=== PATIENT | male | born 1940 | race Caucasian/White ===

== ENCOUNTER → 2018-07-22 10:37 | Outpatient (CLI) | payer MEDICARE, BC, SELFPAY ==
[2018-07-24 14:35] LABS: Parathyroid Hormone Int 117 pg/mL (14-64)
== END ==
PROVIDERS: PCP Internal Medicine; Visit Provider Internal Medicine
DX: E21.2 Other hyperparathyroidism (principal)
CPT/HCPCS: 36415; 83970

== ENCOUNTER → 2018-11-25 13:59 | Outpatient (CLI) | payer MEDICARE, BC, SELFPAY | PROVIDERS: PCP Internal Medicine; Visit Provider Internal Medicine | DX: E21.3 Hyperparathyroidism, unspecified (principal) | CPT/HCPCS: 77080 ==

== ENCOUNTER → 2019-07-20 16:02 | Outpatient (ROUT) | payer MEDICARE, BC, SELFPAY ==
[2019-07-20 16:24] LABS: Aspartate Aminotransferase 39 IU/L (17-59); BUN Creatinine Ratio 24.4 (6-22); Blood Urea Nitrogen 22 mg/dL (9-20); Calcium 10.4 mg/dL (8.4-10.2); Carbon Dioxide 27 mmol/L (22-32); Chloride 104 mmol/L (98-107); Cholesterol 136 mg/dL (140-199); Estimated Glomerular Filt Rate > 60.0 mL/min (>60); Glucose 89 mg/dL (80-110); HDL Cholesterol 26 mg/dL (40-60); HEMOLYSIS < 15 (0-50); LDL Cholesterol Calculated 59 mg/dL (<100); Sodium 139 mmol/L (137-145); Triglycerides 257 mg/dL (35-150)
[2019-07-20 16:57] LABS: Prostate Specific Antigen 1.32 ng/mL (0.10-4.00)
== END ==
PROVIDERS: PCP Internal Medicine; Visit Provider Internal Medicine
DX: N40.0 Benign prostatic hyperplasia without lower urinary tract symptoms (principal); E21.3 Hyperparathyroidism, unspecified; I10 Essential (primary) hypertension; E78.2 Mixed hyperlipidemia
CPT/HCPCS: 80048; 80061; 84153; 84450

== ENCOUNTER 2020-01-10 13:51 | Emergency (ER) | payer MEDICARE, BC, SELFPAY ==
[2020-01-10 14:16] VITALS: BP 144/68; PULSE 86; RESP 14; TEMP 39.6; O2SAT 94
--- NOTE | 2020-01-10 14:24 | DI.RAD.S_ITS ---
PROCEDURE: XR CHEST 1V INDICATIONS: flu-like symptoms TECHNIQUE: One view of the chest was acquired. COMPARISON: [facility], , CHEST 1 VIEW, 04/23/2012, 13:33. FINDINGS: Surgical changes and devices: None. Lungs and pleura: Minimal appearance of streaky bibasilar opacities. Mediastinum: Mediastinal contours appear normal. Heart size is normal. Bones and chest wall: No suspicious bony lesions. Overlying soft tissues appear unremarkable. IMPRESSION: Minimal streaky bibasilar opacities. This could represent atelectasis. However, developing airspace disease such as pneumonia cannot be excluded. Dictated by: Luly Martinez M.D. on 01/10/2020 at 15:25 Approved by: Luly Martinez M.D. on 01/10/2020 at 15:26
--- NOTE | 2020-01-10 14:38 | ED.GENADULT ---
HPI - General Adult General Chief complaint: Upper Respiratory Symptoms Stated complaint: Respiratory issue Time Seen by Provider: 01/10/20 14:14 Source: patient and family Mode of arrival: Wheelchair History of Present Illness HPI narrative: 79-year-old gentleman with a history of hyperlipidemia, retinal artery occlusion and gout presents with 5 days of fever, scleral injection, nonproductive cough, myalgias, general malaise and weakness, mild dizziness with a feeling of being unsteady. He denies any rashes, chest pain, palpitations, abdominal pain, diarrhea, vomiting, changes to smell or taste and notes that he and his have been in strict isolation for well over a month. Reports no sore throat, adenopathy, Related Data Home Medications Medication Instructions Recorded Confirmed allopurinol 400 mg PO QDAY #0 04/23/12 01/10/20 atorvastatin [Lipitor] 20 mg PO QDAY #0 04/23/12 01/10/20 Coenzyme Q10 (#COQ(10)10) 10 mg PO #0 06/25/12 01/10/20 OMEGA-3 FATTY ACIDS (FISH OIL) 500 mg PO #0 04/27/16 01/10/20 [cranberry] #0 04/27/16 01/10/20 cholecalciferol (vitamin D3) 1 tab PO QDAY #0 tab 04/27/16 01/10/20 [Vitamin D3] aspirin 81 mg PO #0 03/09/18 01/10/20 atorvastatin 80 mg tablet 80 mg PO DAILY 03/09/18 01/10/20 Respironics Remstar CPAP #1 ea 02/16/19 01/10/20 Previous Rx's Medication Instructions Recorded azithromycin [Zithromax] 250 mg PO QDAY #6 tab 03/09/17 azithromycin See Rx Instructions .ROUTE 01/10/20 .COMPLEX #6 tab Allergies Allergy/AdvReac Type Severity Reaction Status Date / Time shrimp AdvReac Verified 01/10/20 13:29 Review of Systems Review of Systems Narrative: Pertinent positive and negative findings as per HPI Remainder of review of systems is otherwise unremarkable for CV: Chest pain, palpitations, dyspnea on exertion GI: Nausea, vomiting, diarrhea, change in bowel habits, black or bloody stools : Dysuria, hematuria, flank pain MS: joint swelling or warmth Skin: Rashes, nonhealing lesions Neuro: Syncope, tingling Psych: Depression, anxiety, suicidal ideation Endocrine: heat or cold intolerance, very dry skin Heme: Easy bruising or bleeding Allergy: Seasonal rhinorrhea, itchy eyes Patient History Medical History Gout (Acute) Hyperlipidemia (Acute) Retinal artery occlusion (Acute) Social History Smoking Status: Never smoker alcohol intake: current Smoking Status: Never smoker alcohol intake frequency: a few times a week Substance Use Type: does not use Exam Narrative Exam Narrative: General: Mildly ill-appearing but in no acute distress. Able to give a complete and coherent history. Easily speaking in full sentences, Well-nourished well-developed HEENT: Moist mucous membranes, mildly injected sclera with reactive pupils, Neck: No JVD, supple Respiratory: Lungs are clear to auscultation, no wheezing no rales no rhonchi. Full and symmetrical air movement Cardiac: Regular rate and rhythm no murmurs no bruits Abdomen: Soft nontender good bowel tones, no flank pain Skin: Warm and dry, no rashes Neurologic: Grossly neurologically intact with no obvious asymmetries or abnormalities Extremities: No trauma, well perfused, no lower extremity edema Psych: Cooperative, appropriate insight and affect Initial Vital Signs Initial Vital Signs: Vital Signs Temperature 103.3 F H 01/10/20 14:16 Pulse Rate 86 01/10/20 14:16 Respiratory Rate 14 01/10/20 14:16 Blood Pressure 144/68 H 01/10/20 14:16 Pulse Oximetry 94 01/10/20 14:16 Course Orders Ordered: ED Orders 01/10/20 14:24 XR chest 1V Stat 01/10/20 14:35 EKG-12 Lead Stat 01/10/20 14:53 Complete Blood Count AUTO DIFF Stat Comprehensive Metabolic Panel Stat Lactate (Lactic Acid) Stat Lactate Dehydrogenase Stat Troponin & CK Cardiac Panel Stat 01/10/20 15:00 Respiratory Panel (Film Array) Stat 01/10/20 15:30 Blood Culture Stat 01/10/20 15:35 Urinalysis and Microscopic Stat Discontinued Medications Acetaminophen (Tylenol) 975 mg PO NOW ONE Stop: 01/10/20 14:45 Last Admin: 01/10/20 15:01 Dose: 975 mg Documented by: KOLE Vital Signs Vital signs: Vital Signs - 8 hr 01/10/20 14:16 01/10/20 15:46 01/10/20 16:00 Temperature 103.3 F H Pulse Rate 86 76 71 Respiratory Rate 14 20 22 Blood Pressure 144/68 H Blood Pressure [Right Arm] 123/60 117/58 L Pulse Oximetry 94 93 91 Medical Decision Making Medical Records Medical records reviewed: Yes I reviewed the patient's medical records. Lab Data Lab results reviewed: Yes I reviewed the patient's lab results. Lab results narrative: Urine dip is completely unremarkable Result diagrams: 01/10/20 14:53 01/10/20 14:53 Labs: Lab Results 01/10/20 01/10/20 01/10/20 Range/Units 14:53 14:53 14:53 WBC 13.5 H (4.5-11.0) X10^3/uL RBC 4.49 L (4.5-5.9) X10^6/uL Hgb 14.0 (13.5-17.5) g/dL Hct 41.3 (41-53) % MCV 91.9 (80-100) fL MCH 31.2 (26-34) PG MCHC 33.9 (30-36) % RDW 14.5 (11.6-14.8) % Plt Count 194 (150-400) X10^3/uL Neut % (Auto) 85.7 H (50-75) % Lymph % (Auto) 4.8 L (25-40) % [place] % (Auto) 8.8 (3-14) % Eos % (Auto) 0.2 L (2-4) % Baso % (Auto) 0.5 (0-2) % Neut # (Auto) 09613 H (2276-8606) /uL Lymph # (Auto) 600 L (0856-0418) /uL [place] # (Auto) 1200 H (0-900) /uL Eos # (Auto) 0 (0-450) /uL Baso # (Auto) 100 (0-100) /uL Sodium 135 L (137-145) mmol/L Potassium 4.5 (3.4-5.1) mmol/L Chloride 99 (98-107) mmol/L Carbon Dioxide 25 (22-32) mmol/L BUN 18 (9-20) mg/dL Creatinine 0.99 (0.66-1.25) mg/dL Estimated GFR > 60.0 (>60) mL/min BUN/Creatinine Ratio 18.2 (6-22) Glucose 125 H (80-110) mg/dL Lactate (0.7-2.1) mmol/L Calcium 10.5 H (8.4-10.2) mg/dL Total Bilirubin 0.8 (0.2-1.3) mg/dL AST 35 (17-59) IU/L ALT 31 (<50) IU/L Alkaline Phosphatase 70 (38-126) U/L Lactate Dehydrogenase 277 L (313-618) U/L Total Creatine Kinase 106 (55-170) U/L CK-MB (CK-2) 0.74 (<2.37) ng/mL CK-MB (CK-2) Rel Index 0.7 L (1.5-5.0) % Troponin I < 0.012 (0.01-0.034) ng/mL Total Protein 7.8 (6.3-8.2) g/dL Albumin 4.2 (3.5-5.0) g/dL Globulin 3.6 (1.7-4.1) g/dL Albumin/Globulin Ratio 1.2 (1.0-2.8) Urine Color Urine Appearance Urine pH (4.5-8.0) Ur Specific [place] (1.000-1.035) Urine Protein (Negative) Urine Glucose (UA) (Negative) g/dL Urine Ketones (NEGATIVE) Urine Occult Blood (Negative) Urine Nitrate (Negative) Urine Bilirubin (NEGATIVE) Urine Urobilinogen (0.2) E.U./dL Ur Leukocyte Esterase (NEGATIVE) Urine RBC (0-5/HPF) Urine WBC (0-5/HPF) Ur Squamous Epith Cells (0-5/HPF) Urine Bacteria (None) Ur Culture Indicated? Chlamy pneumoniae PCR (Not Detect) Adenovirus (PCR) (Not Detect) B.parapertussis DNA PCR (Not Detect) Coronavirus OC43 (PCR) (Not Detect) Coronavirus HKU1 (PCR) (Not Detect) Coronavirus 229E (PCR) (Not Detect) Coronavirus NL63 (PCR) (Not Detect) Human Metapneumovir PCR (Not Detect) Influenza Type A (PCR) (Not Detect) Influenza Type B (PCR) (Not Detect) M. pneumoniae (PCR) (Not Detect) Parainfluenza 1 (PCR) (Not Detect) Parainfluenza 2 (PCR) (Not Detect) Parainfluenza 3 (PCR) (Not Detect) Parainfluenza 4 (PCR) (Not Detect) RSV (PCR) (Not Detect) Entero/Rhino (PCR) (Not Detect) 01/10/20 01/10/20 01/10/20 Range/Units 14:53 15:00 15:35 WBC (4.5-11.0) X10^3/uL RBC (4.5-5.9) X10^6/uL Hgb (13.5-17.5) g/dL Hct (41-53) % MCV (80-100) fL MCH (26-34) PG MCHC (30-36) % RDW (11.6-14.8) % Plt Count (150-400) X10^3/uL Neut % (Auto) (50-75) % Lymph % (Auto) (25-40) % [place] % (Auto) (3-14) % Eos % (Auto) (2-4) % Baso % (Auto) (0-2) % Neut # (Auto) (2568-8787) /uL Lymph # (Auto) (7636-5740) /uL [place] # (Auto) (0-900) /uL Eos # (Auto) (0-450) /uL Baso # (Auto) (0-100) /uL Sodium (137-145) mmol/L Potassium (3.4-5.1) mmol/L Chloride (98-107) mmol/L Carbon Dioxide (22-32) mmol/L BUN (9-20) mg/dL Creatinine (0.66-1.25) mg/dL Estimated GFR (>60) mL/min BUN/Creatinine Ratio (6-22) Glucose (80-110) mg/dL Lactate 1.2 (0.7-2.1) mmol/L Calcium (8.4-10.2) mg/dL Total Bilirubin (0.2-1.3) mg/dL AST (17-59) IU/L ALT (<50) IU/L Alkaline Phosphatase (38-126) U/L Lactate Dehydrogenase (313-618) U/L Total Creatine Kinase (55-170) U/L CK-MB (CK-2) (<2.37) ng/mL CK-MB (CK-2) Rel Index (1.5-5.0) % Troponin I (0.01-0.034) ng/mL Total Protein (6.3-8.2) g/dL Albumin (3.5-5.0) g/dL Globulin (1.7-4.1) g/dL Albumin/Globulin Ratio (1.0-2.8) Urine Color Yellow Urine Appearance Clear Urine pH 5.0 (4.5-8.0) Ur Specific [place] 1.010 (1.000-1.035) Urine Protein Trace H (Negative) Urine Glucose (UA) Negative (Negative) g/dL Urine Ketones Negative (NEGATIVE) Urine Occult Blood Trace-lysed (Negative) Urine Nitrate Negative (Negative) Urine Bilirubin Negative (NEGATIVE) Urine Urobilinogen 1.0 (0.2) E.U./dL Ur Leukocyte Esterase Negative (NEGATIVE) Urine RBC 0-1/hpf (0-5/HPF) Urine WBC 0-1/hpf (0-5/HPF) Ur Squamous Epith Cells 0-1 /hpf (0-5/HPF) Urine Bacteria None seen (None) Ur Culture Indicated? Cult not indicated Chlamy pneumoniae PCR Not detected (Not Detect) Adenovirus (PCR) Not detected (Not Detect) B.parapertussis DNA PCR Not detected (Not Detect) Coronavirus OC43 (PCR) Not detected (Not Detect) Coronavirus HKU1 (PCR) Not detected (Not Detect) Coronavirus 229E (PCR) Not detected (Not Detect) Coronavirus NL63 (PCR) Not detected (Not Detect) Human Metapneumovir PCR Not detected (Not Detect) Influenza Type A (PCR) Not detected (Not Detect) Influenza Type B (PCR) Not detected (Not Detect) M. pneumoniae (PCR) Not detected (Not Detect) Parainfluenza 1 (PCR) Not detected (Not Detect) Parainfluenza 2 (PCR) Not detected (Not Detect) Parainfluenza 3 (PCR) Not detected (Not Detect) Parainfluenza 4 (PCR) Not detected (Not Detect) RSV (PCR) Not detected (Not Detect) Entero/Rhino (PCR) Not detected (Not Detect) Imaging Data Chest x-ray: Radiologist's Impression: IMPRESSION: Minimal streaky bibasilar opacities. This could represent atelectasis. However, developing airspace disease such as pneumonia cannot be excluded. Dictated by: Luly Martinez M.D. on 01/10/2020 at 15:25 ECG Data Attestation: I personally reviewed and interpreted this ECG as follows: MDM Narrative Medical decision making narrative: No evidence of sepsis or acute coronary syndrome. Chest x-ray has streaky bibasilar opacities. There is certainly the possibility of a Covid pneumonia, however given their extended isolation and the relatively low prevalence of community transmission at this time in our community the probability of a community acquired bacterial pneumonia is more likely. Will opt to treat as an acute community-acquired bacterial pneumonia with a course of azithromycin as well as standard isolation recommendations for Covid until the test has returned. Discharge Plan Departure Patient Disposition: Home Clinical Impression: Bacterial pneumonia Discharge Date/Time: 01/10/20 16:56 Instructions: DI for Pneumonia -- Adult, DI for COVID-19 (Suspected or Confirmed ) Activity Restrictions/Additional Instructions: Thank you for coming in today I am so sorry that you are not feeling well. I am very glad that he came in I think your evaluation was very appropriate. I am finding no evidence of acute heart failure or heart attack or heart attack type syndrome. Your white blood cell count is slightly elevated suggesting, an infection consistent with your presentation in your fever. Your chest x-ray shows some streaky findings in both bases which could be a bacterial pneumonia but it also fits within the parameters of what we have been seeing with Covid pneumonia. At this time, I am going to opt to treat you with azithromycin for a bacterial pneumonia. We should have the Covid19 back by tomorrow. You will receive a phone call with the results. I have given you instructions on making sure that you are home solating on the off chance that this does turner splitter machine operator to be Covid pneumonia. If you feel that you are getting worse, having more difficulty breathing or developing new symptoms, please return to the emergency department. I hope you heal quickly. CDC Guidelines for home isolation: - Stay away from others - Limit contact with pets and animals: If you must care for a pet, wash your hands before and after interacting with them - Wear a mask if you are sick - Cover your mouth and nose with a tissue when you cough or sneeze. Dispose of tissues in a lined trash can and wash your hands immediately with soap and water for at least 20 seconds. If soap and water are not available, clean hands with alcohol-based hand wedding transportation driver that contains at least 60% alcohol. - Clean your hands often with soap and water for at least 20 seconds - Avoid touching your eyes, nose and mouth with unwashed hands - Do not share dishes, drinking glasses, cups, eating utensils, towels, or bedding with other people in your home. After using these items, wash them thoroughly with soap and water or put in the appraisal technician. - Clean high-touch surfaces in your isolation area (?sick room? and bathroom) every day; let a caregiver clean and disinfect high-touch surfaces in other areas of the home. Clean the area or item with soap and water or another detergent if it is dirty. Then, use a household disinfectant. Seek medical attention, but call first: - Seek medical care right away if your illness is worsening (for example, if you have difficulty breathing). - Call your doctor before going in: Before going to the doctor?s office or emergency room, call ahead and tell them your symptoms. They will tell you what to do. - If possible, put on a facemask before you enter the building. If you can?t put on a facemask, try to keep a safe distance from other people (at least 6 feet away). This will help protect the people in the office or waiting room. - Follow care instructions from your healthcare provider and local health department: Your local health authorities will give instructions on checking your symptoms and reporting information. Emergency warning signs for COVID-19: - Difficulty breathing or shortness of breath - Persistent pain or pressure in the chest - New confusion or inability to arouse - Bluish lips or face Prescriptions: New azithromycin 250 mg tablet See Rx Instructions .ROUTE .COMPLEX Qty: 6 RF: 0 No Action atorvastatin [Lipitor] 20 MG tablet 20 mg PO QDAY Qty: 0 RF: 0 allopurinol 300 MG tablet 400 mg PO QDAY Qty: 0 RF: 0 Coenzyme Q10 (#COQ(10)10) 10 mg PO Qty: 0 RF: 0 cholecalciferol (vitamin D3) [Vitamin D3] 2,000 UNIT tablet 1 tab PO QDAY Qty: 0 RF: 0 OMEGA-3 FATTY ACIDS (FISH OIL) 500 mg PO Qty: 0 RF: 0 [cranberry] Qty: 0 RF: 0 azithromycin [Zithromax] 250 MG tablet 250 mg PO QDAY Qty: 6 RF: 0 aspirin 81 mg PO Qty: 0 RF: 0 atorvastatin [Lipitor] 80 mg tablet 80 mg PO DAILY RF: 0 (DME) Respironics Remstar CPAP Qty: 1 RF: 0 Referrals: Ryder Aguilar MD [Primary Care Provider] -
[2020-01-10] MEDS: ACETAMINOPHEN 325 MG TABLET 975 MG PO (15:01)
[2020-01-10 15:03] LABS: Add Manual Diff / Slide Review NO; Basophils Absolute Auto 100 /uL (0-100); Basophils Percent Auto 0.5 % (0-2); Eosinophils Absolute Auto 0 /uL (0-450); Eosinophils Percent Auto 0.2 % (2-4); Hematocrit 41.3 % (41-53); Lymphocytes Absolute Auto 600 /uL (1100-4500); Lymphocytes Percent Auto 4.8 % (25-40); Mean Corpuscular HGB Conc 33.9 % (30-36); Mean Corpuscular Hemoglobin 31.2 PG (26-34); Mean Corpuscular Volume 91.9 fL (80-100); Monocytes Absolute Auto 1200 /uL (0-900); Monocytes Percent Auto 8.8 % (3-14); Neutrophils Absolute Auto 11500 /uL (1500-7000); Neutrophils Percent Auto 85.7 % (50-75); Platelet Count 194 X10^3/uL (150-400); Red Blood Cell Count 4.49 X10^6/uL (4.5-5.9); Red Cell Distribution Width 14.5 % (11.6-14.8); White Blood Cell Count 13.5 X10^3/uL (4.5-11.0)
[2020-01-10 15:10] LABS: Creatine Kinase 106 U/L (55-170); Lactate Dehydrogenase 277 U/L (313-618)
[2020-01-10 15:12] LABS: Alanine Aminotransferase 31 IU/L (<50); Albumin 4.2 g/dL (3.5-5.0); Albumin Globulin Ratio 1.2 (1.0-2.8); Alkaline Phosphatase 70 U/L (38-126); Aspartate Aminotransferase 35 IU/L (17-59); BUN Creatinine Ratio 18.2 (6-22); Bilirubin Total 0.8 mg/dL (0.2-1.3); Blood Urea Nitrogen 18 mg/dL (9-20); Calcium 10.5 mg/dL (8.4-10.2); Carbon Dioxide 25 mmol/L (22-32); Chloride 99 mmol/L (98-107); Estimated Glomerular Filt Rate > 60.0 mL/min (>60); Globulin 3.6 g/dL (1.7-4.1); Glucose 125 mg/dL (80-110); HEMOLYSIS < 15 (0-50); Lactate (Lactic Acid) 1.2 mmol/L (0.7-2.1); Potassium 4.5 mmol/L (3.4-5.1); Sodium 135 mmol/L (137-145); Total Protein 7.8 g/dL (6.3-8.2)
[2020-01-10 15:23] LABS: Troponin I < 0.012 ng/mL (0.01-0.034)
[2020-01-10 15:26] LABS: CKMB % Relative Index 0.7 % (1.5-5.0); Creatine Kinase MB 0.74 ng/mL (<2.37)
[2020-01-10 15:44] LABS: Bacteria Urine None Seen
[2020-01-10 15:45] LABS: Appearance Urine UA CLEAR; Bilirubin Urine UA NEGATIVE (NEGATIVE); Color Urine UA YELLOW; Glucose Urine UA NEGATIVE (Negative); Ketones Urine UA NEGATIVE (NEGATIVE); Leukocyte Esterase Urine UA NEGATIVE (NEGATIVE); Nitrite Urine UA NEGATIVE (Negative); Occult Blood Urine UA TRACE-LYSED (Negative); Protein Urine UA TRACE (Negative)
[2020-01-10 15:46] VITALS: BP 123/60; PULSE 76; RESP 20; O2SAT 93
[2020-01-10 16:00] VITALS: BP 117/58; PULSE 71; RESP 22; O2SAT 91
[2020-01-10 16:10] LABS: Culture Indicated Urine Cult Not Indicated; RBC Urine 0-1/HPF (0-5/HPF); Squamous Epithelial Cell Urine 0-1 /HPF (0-5/HPF); WBC Urine 0-1/HPF (0-5/HPF)
[2020-01-10 17:14] LABS: Adenovirus Not Detected (Not Detect); Bordetella pertussis Not Detected (Not Detect); Chlamydophila pneumoniae Not Detected (Not Detect); Coronavirus 229E Not Detected (Not Detect); Coronavirus HKU1 Not Detected (Not Detect); Coronavirus NL 63 Not Detected (Not Detect); Coronavirus OC43 Not Detected (Not Detect); Human Metapneumovirus Not Detected (Not Detect); Human Rhinovirus/Enterovirus Not Detected (Not Detect); Influenza A Not Detected (Not Detect); Influenza B Not Detected (Not Detect); Mycoplasma pneumoniae Not Detected (Not Detect); Parainfluenza Virus 1 Not Detected (Not Detect); Parainfluenza Virus 2 Not Detected (Not Detect); Parainfluenza Virus 3 Not Detected (Not Detect); Parainfluenza Virus 4 Not Detected (Not Detect); Respiratory Syncytial Virus Not Detected (Not Detect)
[2020-01-12 05:08] LABS: COVID19 Sendout Not Detected (Not Detected)
== END 2020-01-10 16:56 | disposition home or self-care (01) ==
PROVIDERS: Emergency Provider Emergency Medicine; PCP Internal Medicine
DX: J15.9 Unspecified bacterial pneumonia (principal)
CPT/HCPCS: 36415; 71045; 80053; 81001; 82550; 82553; 83605; 83615; 84484; 85025; 87040; 87633; 87635; 93005; 99284

== ENCOUNTER → 2020-10-03 19:38 | Outpatient (ROUT) | payer MEDICARE, BC, SELFPAY ==
[2020-10-03 19:53] LABS: Add Manual Diff / Slide Review NO; Basophils Absolute Auto 0 /uL (0-100); Basophils Percent Auto 0.5 % (0-2); Eosinophils Absolute Auto 200 /uL (0-450); Eosinophils Percent Auto 1.7 % (2-4); Hematocrit 43.9 % (41-53); Hemoglobin 14.7 g/dL (13.5-17.5); Lymphocytes Absolute Auto 1900 /uL (1100-4500); Lymphocytes Percent Auto 19.8 % (25-40); Mean Corpuscular HGB Conc 33.5 % (30-36); Mean Corpuscular Hemoglobin 31.4 PG (26-34); Mean Corpuscular Volume 93.8 fL (80-100); Monocytes Absolute Auto 700 /uL (0-900); Monocytes Percent Auto 6.9 % (3-14); Neutrophils Absolute Auto 6800 /uL (1500-7000); Neutrophils Percent Auto 71.1 % (50-75); Platelet Count 207 X10^3/uL (150-400); Red Blood Cell Count 4.68 X10^6/uL (4.5-5.9); White Blood Cell Count 9.6 X10^3/uL (4.5-11.0)
[2020-10-03 20:00] LABS: Aspartate Aminotransferase 39 IU/L (17-59); BUN Creatinine Ratio 16.7 (6-22); Blood Urea Nitrogen 18 mg/dL (9-20); Calcium 10.9 mg/dL (8.4-10.2); Carbon Dioxide 26 mmol/L (22-32); Chloride 105 mmol/L (98-107); Cholesterol 126 mg/dL (140-199); Estimated Glomerular Filt Rate > 60.0 mL/min (>60); Glucose 106 mg/dL (80-110); HDL Cholesterol 32 mg/dL (40-60); HEMOLYSIS < 15 (0-50); LDL Cholesterol Calculated 66 mg/dL (<100); Potassium 4.6 mmol/L (3.4-5.1); Sodium 139 mmol/L (137-145); Triglycerides 141 mg/dL (35-150); Uric Acid 4.7 mg/dL (3.5-8.5)
[2020-10-03 20:09] LABS: Hemoglobin A1C% w Est Avg Glu 5.5 % (4.0-6.0)
[2020-10-03 20:30] LABS: Prostate Specific Antigen 1.17 ng/mL (0.10-4.00)
[2020-10-05 06:09] LABS: Parathyroid Hormone Int 75 pg/mL (15-65)
== END ==
PROVIDERS: PCP Internal Medicine; Visit Provider Internal Medicine
DX: Z00.00 Encounter for general adult medical examination without abnormal findings (principal); I10 Essential (primary) hypertension; E78.2 Mixed hyperlipidemia; R73.01 Impaired fasting glucose; N40.0 Benign prostatic hyperplasia without lower urinary tract symptoms; M10.9 Gout, unspecified
CPT/HCPCS: 80048; 80061; 83036; 83970; 84153; 84450; 84550; 85025

== ENCOUNTER → 2021-04-02 08:17 | Outpatient (CLI) | payer MEDICARE, BC, SELFPAY ==
[2021-04-02 12:28] LABS: COVID19 -Nasal RAPID Negative (Negative)
== END ==
PROVIDERS: PCP Internal Medicine; Visit Provider Specialist
DX: Z20.822 Contact with and (suspected) exposure to COVID-19 (principal)
CPT/HCPCS: 87635; C9803

== ENCOUNTER 2021-04-03 07:35 | Day surgery (SDC) | payer MEDICARE, BC, SELFPAY ==
[2021-03-28 10:52] VITALS: BMI 25.7
[2021-04-03] VITALS (8 sets, daily range): BP systolic 141–183; BP diastolic 77–93; PULSE 58–87; RESP 10–16; TEMP 36–36.6; O2SAT 93–96; BMI 25.7
--- NOTE | 2021-04-03 | PATH_ITS ---
[facility] Accession Number: [id number] . 01 Material submitted: . buttock - SEBACEOUS CYST RIGHT BUTTOCK . 01 Diagnosis: Right Buttock, Excision: Epidermal inclusion cyst, ruptured and inflamed. [facility] 04/08/2021 1712 Local . 01 Electronically signed: . Quita Khalil MD, Dermatopathologist NPI- [id number] . 01 Gross description: . The specimen is received in formalin, labeled sebaceous cyst, right buttock and consists of a 2.5 x 1.0 cm hamlin skin excised to a depth of 1.9 cm. The margin is inked blue. Cut surface shows a 0.3 x 0.3 x 0.2 cm hamlin-white cyst. Needle Board Repairer sections are submitted in cassette A1. ([id number]) /MRV 04/08/[id number] Local . 01 Pathologist provided ICD-10: L72.0 . 01 CPT . 037459 Performed at: 01 [facility] [address] [place] [address], [place], [place] [id number] MD Maynor Torrez MD Phone: [phone]
[2021-04-03] MEDS: LACTATED RINGERS 1,000 ML 42 ML IV ×2 (08:24→10:35)
--- NOTE | 2021-04-03 08:48 | PM.HP.1 ---
History of Present Illness History of Present Illness Date Patient Seen: 04/03/21 Time Patient Seen: 08:48 Chief complaint: SDC Narrative: The patient is a gentleman with a longstanding draining sinus tract to the right and above his anus. It is some distance from the anus but also not in the area usually see a pilonidal cyst. He is brought in for exam under anesthesia and treatment of whatever process is causing this problem. Patient History Medical History Carotid artery dissection Gout History of stroke HTN (hypertension) Hyperlipidemia OK (obstructive sleep apnea) Retinal artery occlusion Surgical History History of cancer surgery Hx of endarterectomy (04/2012) Family & Social History Family History Father Heart disease Jaw cancer Social History: household members spouse Tobacco & Substance use: Smoking Status Never smoker alcohol intake current alcohol intake frequency a few times a week Substance Use Type does not use Meds Home Medications and Allergies Home Medications Medication Instructions Recorded Confirmed Type allopurinol 300 mg tablet 400 mg PO QDAY #0 04/23/12 04/03/21 History [cranberry] #0 04/27/16 02/22/21 History cholecalciferol (vitamin D3) 50 1 tab PO QDAY #0 tab 04/27/16 04/03/21 History mcg (2,000 unit) tablet (Vitamin D3) atorvastatin 80 mg tablet (Lipitor) 80 mg PO DAILY 03/09/18 04/03/21 History Respironics Remstar CPAP #1 ea 02/16/19 02/22/21 History aspirin 325 mg tablet 162.5 mg PO DAILY tab 02/22/21 04/03/21 History coenzyme Q10 75 mg capsule (Ultra 75 mg PO DAILY 02/22/21 03/28/21 History CoQ10) polyethylene glycol 3350 17 17 g PO DAILY 02/22/21 04/03/21 History gram/dose oral powder (Miralax) Allergies Allergy/AdvReac Type Severity Reaction Status Date / Time shrimp AdvReac Verified 02/22/21 13:27 Review of Systems Review of Systems Narrative: No cough cold or asthma. No chest pain. No black or bloody bowel movements. Patient had been treated for hypertension but is blood pressure is normally in the 120s and because of hypotension with issues it is been stopped by his physician. He is a little concerned because his blood pressure here is elevated. Exam Vital Signs (past 8 hours): - 04/03/21 08:00 Temperature 97.8 F Pulse Rate 61 Respiratory Rate 16 Blood Pressure 183/93 H Pulse Oximetry 96 Oxygen Delivery Method Room Air Narrative Exam Narrative: Cooperative pleasant gentleman no apparent distress. Lungs are clear to auscultation no rales or rhonchi heart regular rate and rhythm without murmur gallop abdomen is mildly protuberant soft lacks Much muscle mass. No tenderness. alert and oriented. Has a visible sinus tract with mild induration around it to the right and above the anus into the right of the coccyx and slightly inferior to it. 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 I have discussed the various possibilities here in the possible treatments. He understands that I am uncertain exactly when going to have to do an its based on the intraoperative findings. He wishes to proceed.
--- NOTE | 2021-04-03 08:53 | PM.PREOP ---
Pre-operative Note COVID-19 COVID-19 status: Negative Result date/Date tested (Pos, Neg/Pending): 04/02/21 Interval Note History & Physical reviewed/Exam performed by Physician: Yes Changes to H&P: No
--- NOTE | 2021-04-03 09:16 | SUR.OPER ---
Prone on padded OR bed, head in foam head support, gel chest rolls, gel pad under knees, pillow under lower legs, toes free of pressure, arms secured on padded arm boards at <90 degrees abduction. Safety belt at thigh.
[2021-04-03] MEDS: CLINDAMYCIN 900 MG/50 ML PIGGYBACK 50 MG IV (09:45)
[2021-04-03] MEDS: CEFAZOLIN 1 GM VIAL 2 GM IV (10:06)
[2021-04-03] MEDS: BUPIVACAINE 0.5% (PF) VIAL 30 ML INJ (10:08)
[2021-04-03] MEDS: EPINEPHrine 1 MG/ML 0.15 MG INJ (10:09)
--- NOTE | 2021-04-03 10:40 | SUR.OPER ---
SEVERAL PORES ON PATIENT'S BACK EMPTIED BY DR MARCUS.. CLEANED WITH ALCOHOL AND 1 BANDAID APPLIED
--- NOTE | 2021-04-03 11:19 | PM.OP.1 ---
Operative Date/Time/Diagnoses Date of procedure: 04/03/21 Time of procedure: 11:19 Pre-op diagnosis: Abscess the buttock Post-op diagnosis: other ( sebaceous cyst of the buttock) Procedure & Clinicians Procedure: anal exam under anesthesia/ anoscopy. Excision of sebaceous cyst Same procedure as scheduled: Yes Indications: chronically be infected intermittently draining lesion that could be related to a pilonidal cyst or a fistula in ANO. Patient was brought to the operating room to figure out the nature of this lesion. Surgeon: Lorne Metz Click Yes if Unassisted: Yes Anesthesia Type: General Operative Notes Findings: sebaceous cyst Closure Type: primary Specimen(s): other ( cyst) Estimated Blood Loss (mL): 5 Blood products transfused: none Procedure in detail: patient was placed qasim-knife prone on the operating room table after undergoing general endotracheal anesthesia. He was prepped and draped in the usual fashion. Examination of this lesion fail to reveal any induration leading away from it. I probed the opening and it seemed to extend only to a small raised area adjacent to the sinus opening. The contents coming from it today appeared to be more like a sebaceous cyst material. A bivalve Anoscope was inserted aunt and a circumferential examination failed to reveal any abnormality. there was no digital abnormality in the anus either. Her gloves were removed and using sterile gloves I made an elliptical incision around this lesion. It appeared to be a classic sebaceous cyst. It did not track toward the coccyx. I excised the entire lesion. Hemostasis was achieved with cautery. The subQ was closed with 3-0 Vicryl. The skin was closed interrupted 4-0 in vertical mattress nylon sutures. Dressing was applied and the patient was returned to his stretcher extubated and taken the recovery room good condition. Excision measured 3 cm. Complications: none Post-operative Condition: stable Disposition: PACU
== END 2021-04-03 11:35 | disposition home or self-care (01) ==
PROVIDERS: PCP Internal Medicine; Referring Provider Specialist; Visit Provider Specialist
PROC: (CPT 11403; principal; 2021-04-03 08:45)
DX: L72.0 Epidermal cyst (principal); L02.31 Cutaneous abscess of buttock; G47.33 Obstructive sleep apnea (adult) (pediatric); E78.5 Hyperlipidemia, unspecified; I10 Essential (primary) hypertension; Z86.73 Personal history of transient ischemic attack (TIA), and cerebral infarction without residual deficits
CPT/HCPCS: 11403; J0171; J0330; J0690; J1100; J2405; J2704; J3010

== ENCOUNTER 2021-08-24 20:44 | Inpatient (IN) | payer MEDICARE, BC, SELFPAY ==
[2021-08-24] VITALS (10 sets, daily range): BP systolic 113–136; BP diastolic 55–60; PULSE 97–119; RESP 19–26; TEMP 37.9–39.5; O2SAT 88–100; BMI 27.8
--- NOTE | 2021-08-24 20:52 | DI.RAD.S_ITS ---
PROCEDURE: XR CHEST 1V INDICATIONS: suspected sepsis TECHNIQUE: One view of the chest was acquired. COMPARISON: [facility], CR, XR CHEST 1V, 01/10/2020, 15:07. FINDINGS: Surgical changes and devices: None. Lungs and pleura: Minimal streaky bibasilar opacities are unchanged. No focal consolidations. No pleural effusions or pneumothorax. Mediastinum: Mediastinal contours appear normal. Heart size is normal. Bones and chest wall: No suspicious bony lesions. Overlying soft tissues appear unremarkable. IMPRESSION: Minimal streaky bibasilar opacities favored to represent atelectasis; however, early developing airspace disease/pneumonia not excluded if clinically appropriate. No focal consolidations. Dictated by: Clement Kirk M.D. on 08/24/2021 at 21:25 Approved by: Clement Kirk M.D. on 08/24/2021 at 21:26
--- NOTE | 2021-08-24 20:57 | ED_ITS ---
HPI - General Adult General Chief complaint: Shortness of Breath/Dyspnea Stated complaint: UTI Time Seen by Provider: 08/24/21 20:50 Source: patient and EMS Mode of arrival: EMS History of Present Illness HPI narrative: 81-year-old gentleman with a history of hyperlipidemia, gout, prior stroke with carotid artery dissection presents after being seen this morning in the walk-in clinic diagnosed with a urinary tract infection started on cephalexin taking a single dose and noting the symptoms are dramatically worse. This morning he had been having chills and vitals were relatively benign at 9:00 a.m.. Urine was sent for culture. Over the course of the day he has had chills and rigors increasing dysuria, myalgias and general malaise. He reports no abdominal pain chest pain, palpitations, dyspnea, skin changes, lower extremity edema, headaches. On arrival in the emergency department he is not hypotensive but he is tachycardic and febrile. Sepsis order set is started and 2 g of ceftriaxone is initiated after blood cultures are drawn. Will anticipate need for admission and will complete workup to make sure no other etiology might be found to explain his fever and developing sepsis. Related Data Home Medications Medication Instructions Recorded Confirmed allopurinol 300 mg tablet 400 mg PO QDAY #0 04/23/12 08/24/21 cholecalciferol (vitamin D3) 50 1 tab PO QDAY #0 tab 04/27/16 08/24/21 mcg (2,000 unit) tablet (Vitamin D3) cranberry extract 250 mg tablet 250 mg PO DAILY #0 04/27/16 08/24/21 atorvastatin 80 mg tablet (Lipitor) 80 mg PO DAILY 03/09/18 08/24/21 Respironics Remstar CPAP #1 ea 02/16/19 08/24/21 aspirin 325 mg tablet 162.5 mg PO DAILY tab 02/22/21 08/24/21 coenzyme Q10 75 mg capsule (Ultra 75 mg PO DAILY 02/22/21 08/24/21 CoQ10) polyethylene glycol 3350 17 17 g PO DAILY 02/22/21 08/24/21 gram/dose oral powder (Miralax) vit C 250 mg-vit E 90 mg-zinc 40 1 tab PO BID 08/24/21 08/24/21 mg-copper 1 [id number] capsule (PreserVision AREDS-2) Previous Rx's Medication Instructions Recorded cephalexin 500 mg capsule 500 mg PO QID 7 Days #28 cap 08/24/21 Allergies Allergy/AdvReac Type Severity Reaction Status Date / Time shrimp AdvReac Verified 08/24/21 20:57 Review of Systems Review of Systems Narrative: Remainder of complete review of systems is otherwise unremarkable except for that included in the HPI. Patient History Medical History Carotid artery dissection Gout History of stroke HTN (hypertension) Hyperlipidemia OK (obstructive sleep apnea) Retinal artery occlusion Surgical History History of cancer surgery Hx of endarterectomy (04/2012) Family History Father Heart disease Jaw cancer Social History marital status: household members: spouse occupational status: previously employed Smoking Status: Never smoker alcohol intake: current substance use type: does not use Smoking Status: Never smoker alcohol intake frequency: a few times a week Substance Use Type: does not use Exam Narrative Exam Narrative: General: Fatigued appearing, in general appears to not feel will but no acute respiratory distress Well-nourished well-developed HEENT: Moist mucous membranes, normal sclera with reactive pupils, Neck: No JVD, supple Respiratory: Lungs are clear to auscultation, no wheezing no rales no rhonchi. Full and symmetrical air movement Cardiac: Tachycardic with regular rhythm no murmurs no bruits Abdomen: Soft, nontender, good bowel tones, no flank pain Skin: Warm to the touch, dry, no rashes Neurologic: Globally weak,with no obvious asymmetries or abnormalities, mild confusion Extremities: No trauma, well perfused, no lower extremity edema Psych: Cooperative, fluent speech, mild confusion Initial Vital Signs Initial Vital Signs: Vital Signs Temperature 103.1 F H 08/24/21 20:45 Pulse Rate 118 H 08/24/21 20:45 Respiratory Rate 26 H 08/24/21 20:45 Blood Pressure 136/60 08/24/21 20:45 Pulse Oximetry 88 L 08/24/21 20:45 Course Orders Ordered: ED Orders 08/24/21 20:45 Complete Blood Count AUTO DIFF Stat Comprehensive Metabolic Panel Stat Lipase Stat Partial Thromboplastin Time Stat Procalcitonin Stat Prothrombin Time INR Stat 08/24/21 20:48 COVID19 -Nasal swab/Pre-Proc Stat 08/24/21 20:52 XR chest 1V Stat EKG-12 Lead Stat 08/24/21 20:55 Blood Culture Stat Lactate (Lactic Acid) Stat 08/24/21 21:21 Urine Culture Stat Urine Microscopic Stat Sodium Chloride (Normal Saline 0.9%) 2,789.58 mls @ 929.86 mls/hr 30 ml/kg infuse over 3 hr (2789.58 ml) IV NOW ONE Stop: 08/25/21 00:01 Last Admin: 08/24/21 21:00 Dose: 929.86 mls/hr Documented by: LUCY Discontinued Medications Acetaminophen (Acetaminophen 325 Mg Tablet) 975 mg PO NOW ONE Stop: 08/24/21 21:21 Last Admin: 08/24/21 21:25 Dose: 975 mg Documented by: LUCY Sodium Chloride (Normal Saline 0.9%) 1,000 mls @ 1,000 mls/hr IV BOLUS ONE Stop: 08/24/21 21:51 Last Admin: 08/24/21 21:11 Dose: Not Given Documented by: KP Ceftriaxone Sodium 2,000 mg/ (Sodium Chloride) 100 mls @ 200 mls/hr IV NOW ONE Stop: 08/24/21 21:03 Last Infusion: 08/24/21 22:00 Dose: 0 mls/hr Documented by: Admin: 08/24/21 21:24 Dose: 200 mls/hr Documented by: LUCY Vital Signs Vital signs: Vital Signs - 8 hr 08/24/21 20:45 08/24/21 20:47 08/24/21 20:48 Temperature 103.1 F H Pulse Rate 118 H 119 H 119 H Respiratory Rate 26 H Blood Pressure 136/60 136/60 Pulse Oximetry 88 L 88 L 88 L 08/24/21 21:00 08/24/21 21:30 08/24/21 21:51 Temperature 102.2 F H Pulse Rate 116 H 106 H Respiratory Rate 22 19 Blood Pressure 117/59 L 113/55 L Pulse Oximetry 92 99 08/24/21 22:00 Temperature Pulse Rate 97 H Respiratory Rate 20 Blood Pressure 115/58 L Pulse Oximetry 99 Medical Decision Making Lab Data Result diagrams: 08/24/21 20:45 08/24/21 20:45 Labs: Lab Results 08/24/21 08/24/21 08/24/21 Range/Units 20:45 20:45 20:45 WBC 11.6 H (4.5-11.0) X10^3/uL RBC 4.75 (4.5-5.9) X10^6/uL Hgb 14.7 (13.5-17.5) g/dL Hct 43.6 (41-53) % MCV 91.8 (80-100) fL MCH 31.0 (26-34) PG MCHC 33.8 (30-36) % RDW 14.3 (11.6-14.8) % Plt Count 165 (150-400) X10^3/uL Neut % (Auto) 86.9 H (50-75) % Lymph % (Auto) 11.5 L (25-40) % Arthur % (Auto) 0.9 L (3-14) % Eos % (Auto) 0.2 L (2-4) % Baso % (Auto) 0.5 (0-2) % Neut # (Auto) 41847 H (8764-6021) /uL Lymph # (Auto) 1300 (6933-2796) /uL Arthur # (Auto) 100 (0-900) /uL Eos # (Auto) 0 (0-450) /uL Baso # (Auto) 100 (0-100) /uL PT 12.7 (10.1-12.7) SECONDS INR 1.1 (0.9-1.3) APTT 32 (26.4-36.2) SECONDS Sodium 136 L (137-145) mmol/L Potassium 4.5 (3.4-5.1) mmol/L Chloride 105 (98-107) mmol/L Carbon Dioxide 21 L (22-32) mmol/L BUN 17 (9-20) mg/dL Creatinine 1.07 (0.66-1.25) mg/dL Estimated GFR > 60.0 (>60) mL/min BUN/Creatinine Ratio 15.9 (6-22) Glucose 107 (80-110) mg/dL Lactate (0.7-2.1) mmol/L Calcium 9.6 (8.4-10.2) mg/dL Total Bilirubin 1.3 (0.2-1.3) mg/dL AST 31 (17-59) IU/L ALT 29 (<50) IU/L Alkaline Phosphatase 87 (38-126) U/L Total Protein 7.7 (6.3-8.2) g/dL Albumin 4.4 (3.5-5.0) g/dL Globulin 3.3 (1.7-4.1) g/dL Albumin/Globulin Ratio 1.3 (1.0-2.8) Lipase 161 (23-300) U/L Procalcitonin 0.20 (<0.5) ng/mL Urine RBC (0-5/HPF) Urine WBC (0-5/HPF) Urine Bacteria (None) Ur Culture Indicated? SARS-CoV-2 (PCR) (Negative) 08/24/21 08/24/21 08/24/21 Range/Units 20:48 20:55 21:21 WBC (4.5-11.0) X10^3/uL RBC (4.5-5.9) X10^6/uL Hgb (13.5-17.5) g/dL Hct (41-53) % MCV (80-100) fL MCH (26-34) PG MCHC (30-36) % RDW (11.6-14.8) % Plt Count (150-400) X10^3/uL Neut % (Auto) (50-75) % Lymph % (Auto) (25-40) % [place] % (Auto) (3-14) % Eos % (Auto) (2-4) % Baso % (Auto) (0-2) % Neut # (Auto) (6664-9355) /uL Lymph # (Auto) (2355-2537) /uL Arthur # (Auto) (0-900) /uL Eos # (Auto) (0-450) /uL Baso # (Auto) (0-100) /uL PT (10.1-12.7) SECONDS INR (0.9-1.3) APTT (26.4-36.2) SECONDS Sodium (137-145) mmol/L Potassium (3.4-5.1) mmol/L Chloride (98-107) mmol/L Carbon Dioxide (22-32) mmol/L BUN (9-20) mg/dL Creatinine (0.66-1.25) mg/dL Estimated GFR (>60) mL/min BUN/Creatinine Ratio (6-22) Glucose (80-110) mg/dL Lactate 2.8 H (0.7-2.1) mmol/L Calcium (8.4-10.2) mg/dL Total Bilirubin (0.2-1.3) mg/dL AST (17-59) IU/L ALT (<50) IU/L Alkaline Phosphatase (38-126) U/L Total Protein (6.3-8.2) g/dL Albumin (3.5-5.0) g/dL Globulin (1.7-4.1) g/dL Albumin/Globulin Ratio (1.0-2.8) Lipase (23-300) U/L Procalcitonin (<0.5) ng/mL Urine RBC 0-1/hpf (0-5/HPF) Urine WBC 30-100/hpf H (0-5/HPF) Urine Bacteria Few (2-10) H (None) Ur Culture Indicated? Specimen cultured SARS-CoV-2 (PCR) Negative (Negative) Urine Dip Bedside Urine Glucose Negative Bedside Urine Bilirubin - Negative Bedside Urine Ketone - Negative Urine Specific [place] 1.015 Bedside Urine Occult Blood ++ Bedside Urine pH 6.0 Bedside Urine Protein + 30 Bedside Urine Urobilinogen - Negative Bedside Urine Nitrite - Negative Bedside Urine Leukocytes + 70 Esterase Point of care testing: Urine Dip Bedside Urine Glucose Negative Bedside Urine Bilirubin - Negative Bedside Urine Ketone - Negative Urine Specific [place] 1.015 Bedside Urine Occult Blood ++ Bedside Urine pH 6.0 Bedside Urine Protein + 30 Bedside Urine Urobilinogen - Negative Bedside Urine Nitrite - Negative Bedside Urine Leukocytes + 70 Esterase ECG Data Interpretation: Sinus tachycardia at a rate of 116 Left ventricular hypertrophy, left axis deviation No acute ischemic changes MDM Narrative Medical decision making narrative: 81-year-old gentleman with UTI symptoms that started this morning consisting of chills and dysuria. He was seen in Urgent Care with a positive urinalysis was started on Keflex had 2 doses over the course of today but continued to worsen. His noted changing mental status, he was having chills and rigors and clearly worsening. They called medics for further evaluation and were brought to the emergency department. He appeared to be septic on arrival without signs of severe sepsis. He has responded nicely to initial fluid resuscitation with mental status returning to baseline, continues to have excellent peripheral per fusion. Initial lactic acid was slightly elevated and will be recheck it. He is given 2 g of ceftriaxone and will anticipate hospital admission for urinary tract infection with sepsis. He had his have questions about recurrent urinary tract infections. Apparently had a bladder infection about a year ago that resolved with antibiotics but rapidly got worse at that time as well. He does not describe dramatic BPH symptoms, states that his flow was not particularly slowed, he does not dribble he will void 2 times a night on average. Bedside ultrasound was done in the department that showed of postvoid residual of 140 cc(again this is in the setting of dehydration related to sepsis) and question of and thickened posterior bladder wall. This will need further evaluation to make sure that bladder itself is within normal limits. He does not describe episodes of hematuria, dysuria or any pain outside of what have been clearly diagnosed as urinary tract infections. Patient will be admitted to the hospitalist service Discharge Plan Departure Patient Disposition: Admitted As Inpatient Clinical Impression: Acute delirium, Abnormal ultrasound of bladder Urinary tract infection Qualifiers: Urinary tract infection type: acute cystitis Hematuria presence: with hematuria Qualified Code(s): N30.01 - Acute cystitis with hematuria Sepsis Qualifiers: Sepsis type: sepsis due to unspecified organism Sepsis acute organ dysfunction status: without acute organ dysfunction Qualified Code(s): A41.9 - Sepsis, unspecified organism
[2021-08-24] MEDS: SODIUM CHLORIDE 0.9% 2,789.58 ML 929.86 ML IV (21:00)
[2021-08-24 21:06] LABS: INR 1.1 (0.9-1.3); Prothrombin Time 12.7 SECONDS (10.1-12.7)
[2021-08-24 21:09] LABS: Add Manual Diff / Slide Review NO; Basophils Absolute Auto 100 /uL (0-100); Basophils Percent Auto 0.5 % (0-2); Eosinophils Absolute Auto 0 /uL (0-450); Eosinophils Percent Auto 0.2 % (2-4); Hematocrit 43.6 % (41-53); Hemoglobin 14.7 g/dL (13.5-17.5); Lymphocytes Absolute Auto 1300 /uL (1100-4500); Lymphocytes Percent Auto 11.5 % (25-40); Mean Corpuscular HGB Conc 33.8 % (30-36); Mean Corpuscular Volume 91.8 fL (80-100); Monocytes Absolute Auto 100 /uL (0-900); Monocytes Percent Auto 0.9 % (3-14); Neutrophils Absolute Auto 10100 /uL (1500-7000); Neutrophils Percent Auto 86.9 % (50-75); PTT Partial Thromboplastin Tim 32 SECONDS (26.4-36.2); Platelet Count 165 X10^3/uL (150-400); Red Blood Cell Count 4.75 X10^6/uL (4.5-5.9); Red Cell Distribution Width 14.3 % (11.6-14.8); White Blood Cell Count 11.6 X10^3/uL (4.5-11.0)
[2021-08-24 21:10] LABS: Alanine Aminotransferase 29 IU/L (<50); Albumin 4.4 g/dL (3.5-5.0); Albumin Globulin Ratio 1.3 (1.0-2.8); Alkaline Phosphatase 87 U/L (38-126); Aspartate Aminotransferase 31 IU/L (17-59); BUN Creatinine Ratio 15.9 (6-22); Bilirubin Total 1.3 mg/dL (0.2-1.3); Blood Urea Nitrogen 17 mg/dL (9-20); Calcium 9.6 mg/dL (8.4-10.2); Carbon Dioxide 21 mmol/L (22-32); Chloride 105 mmol/L (98-107); Estimated Glomerular Filt Rate > 60.0 mL/min (>60); Globulin 3.3 g/dL (1.7-4.1); Glucose 107 mg/dL (80-110); HEMOLYSIS 25 (0-50); Lipase 161 U/L (23-300); Potassium 4.5 mmol/L (3.4-5.1); Sodium 136 mmol/L (137-145); Total Protein 7.7 g/dL (6.3-8.2)
[2021-08-24 21:18] LABS: Lactate (Lactic Acid) 2.8 mmol/L (0.7-2.1)
[2021-08-24] MEDS: cefTRIAXone 2,000 MG in SODIUM CHLORIDE 0.9% 100 ML 200 ML IV (21:24)
[2021-08-24] MEDS: ACETAMINOPHEN 325 MG TABLET 975 MG PO (21:25)
[2021-08-24 21:33] LABS: COVID19 -Nasal RAPID Negative (Negative)
[2021-08-24 21:36] LABS: RBC Urine 0-1/HPF (0-5/HPF); WBC Urine 30-100/HPF (0-5/HPF)
[2021-08-24 21:37] LABS: Bacteria Urine Few (2-10); Culture Indicated Urine Specimen Cultured
[2021-08-24 23:10] LABS: Reflexed Lactate in 2 Hours Y
--- NOTE | 2021-08-24 23:30 | PM.HP.1 ---
History of Present Illness History of Present Illness Date Patient Seen: 08/24/21 Time Patient Seen: 23:30 Chief complaint: UTI Narrative: Conner Peña is a 81-year-old gentleman with a history of hyperlipidemia, gout, prior stroke with carotid artery dissection presents after being seen this morning in the walk-in clinic diagnosed with a urinary tract infection started on cephalexin taking a single dose and noting the symptoms are dramatically worse.? This morning he had been having chills and vitals were relatively benign at 9:00 a.m..? Urine was sent for culture.? Over the course of the day he has had chills and rigors increasing dysuria, myalgias, general malaise, and confusion.? He reports no abdominal pain chest pain, palpitations, dyspnea, skin changes, lower extremity edema, headaches.? On arrival in the emergency department he is not hypotensive but he is tachycardic and febrile.? Sepsis order set is started and 2 g of ceftriaxone is initiated after blood cultures are drawn.? Patient's vitals upon admit is febrile at 1:02 a.m. 0.2, BP 115/58, HR 97, R 20, O2 saturation 98% on 2 L nasal cannula. Patient does have a slight elevated WBC 11.6 with a left shift neutrophils 10,100, the rest of CBC and chemistry are WNL. Patient's urine had wbc's 30-100, bacteria few 2-10, urine sent for culture. Procalcitonin WNL lipase WNL, lactate 2.8. Patient's chest x-ray demonstrated minimal streaky bibasilar opacities favored to represent atelectasis; however, early developing airspace disease/pneumonia not excluded if clinically appropriate. Patient was given 2 g Rocephin and sepsis bolus in ED and clinical presentation improved significantly, encephalopathy and no longer required oxygen. Post void residual ultrasound was performed and found the patient to retain 150 cc also some wall thickening was noted. Patient admitted for acute hypoxic respiratory failure due to sepsis secondary to UTI with encephalopathy. Patient History Medical History Carotid artery dissection Gout History of stroke HTN (hypertension) Hyperlipidemia OK (obstructive sleep apnea) Retinal artery occlusion Surgical History History of cancer surgery Hx of endarterectomy (04/2012) Family & Social History Family History Father Heart disease Jaw cancer Social History: household members spouse Safety & Behavioral: Feels Safe in Current Yes Environment Tobacco & Substance use: Smoking Status Never smoker alcohol intake current alcohol intake frequency a few times a week Substance Use Type does not use Meds Home Medications and Allergies Home Medications Medication Instructions Recorded Confirmed Type allopurinol 300 mg tablet 400 mg PO QDAY #0 04/23/12 08/24/21 History cholecalciferol (vitamin D3) 50 1 tab PO QDAY #0 tab 04/27/16 08/24/21 History mcg (2,000 unit) tablet (Vitamin D3) cranberry extract 250 mg tablet 250 mg PO DAILY #0 04/27/16 08/24/21 History atorvastatin 80 mg tablet (Lipitor) 80 mg PO DAILY 03/09/18 08/24/21 History Respironics Remstar CPAP #1 ea 02/16/19 08/24/21 History aspirin 325 mg tablet 162.5 mg PO DAILY tab 02/22/21 08/24/21 History coenzyme Q10 75 mg capsule (Ultra 75 mg PO DAILY 02/22/21 08/24/21 History CoQ10) polyethylene glycol 3350 17 17 g PO DAILY 02/22/21 08/24/21 History gram/dose oral powder (Miralax) cephalexin 500 mg capsule 500 mg PO QID 7 Days #28 cap 08/24/21 08/24/21 Rx vit C 250 mg-vit E 90 mg-zinc 40 1 tab PO BID 08/24/21 08/24/21 History mg-copper 1 [id number] capsule (PreserVision AREDS-2) Allergies Allergy/AdvReac Type Severity Reaction Status Date / Time shrimp AdvReac Verified 08/24/21 20:57 Review of Systems Review of Systems Narrative: All 12 point systems reviewed with the patient and are negative except otherwise documented. Exam Vital Signs (past 8 hours): - 08/24/21 20:45 08/24/21 20:47 08/24/21 20:48 Temperature 103.1 F H Pulse Rate 118 H 119 H 119 H Respiratory Rate 26 H Blood Pressure 136/60 136/60 Pulse Oximetry 88 L 88 L 88 L 08/24/21 21:00 08/24/21 21:30 08/24/21 21:51 Temperature 102.2 F H Pulse Rate 116 H 106 H Respiratory Rate 22 19 Blood Pressure 117/59 L 113/55 L Pulse Oximetry 92 99 08/24/21 22:00 08/24/21 22:30 08/24/21 22:58 Temperature 100.2 F H Pulse Rate 97 H 97 H Respiratory Rate 20 21 Blood Pressure 115/58 L 120/58 L Pulse Oximetry 99 100 Oxygen Delivery Method Room Air Oxygen Flow Rate 2 Narrative Exam Narrative: General: Patient is a well-developed, well-nourished male in no distress at this time. HEENT: Normocephalic, atraumatic, extraocular muscles intact, oral pharynx is clear and mucous membranes are moist. Neck is supple and symmetric, trachea is midline, no adenopathy, no thyroid enlargement, nontender, no masses palpated. Negative for JVD Chest: Normal AP diameter and contour without kyphoscoliosis, no nasal flaring, retractions, or tachypneic labored Lungs: Auscultation of all lung andujar are clear without adventitious sounds, wheezes, rhonchi, or rales. Cardio: S1 & S2 with regular rate and rhythm without murmur, rubs, or gallops, no carotid bruit, no cardiac pulsations present. Abdomen: Soft, distended, nontender, negative for organomegaly, or masses. Bowel sounds are hypoactive present in all 4 quadrants without guarding or rebound, no CVA tenderness. Musculoskeletal: Muscle strength and tone are equal within normal limits, no deformity, crepitus, effusions, cyanosis, clubbing or edema present. Full range of motion intact radial and pedal pulses are normal. Skin: Warm dry and intact without rashes, ulcerations or petechiae. Neuro: Alert and orientated x3, strength is +5/5 in all extremities, sensation to touch intact, no gross deficits noted of cranial nerves. Psych: Patient has a well-kept appearance, appropriate affect, mental status attitude thought context and judgment are appropriate for age. Objective Labs Result Diagrams: 08/24/21 20:45 08/24/21 20:45 Labs: Laboratory Results - last 24 hr 08/24/21 08/24/21 08/24/21 20:45 20:45 20:45 WBC 11.6 H RBC 4.75 Hgb 14.7 Hct 43.6 MCV 91.8 MCH 31.0 MCHC 33.8 RDW 14.3 Plt Count 165 Neut % (Auto) 86.9 H Lymph % (Auto) 11.5 L [place] % (Auto) 0.9 L Eos % (Auto) 0.2 L Baso % (Auto) 0.5 Neut # (Auto) 59850 H Lymph # (Auto) 1300 [place] # (Auto) 100 Eos # (Auto) 0 Baso # (Auto) 100 PT 12.7 INR 1.1 APTT 32 Sodium 136 L Potassium 4.5 Chloride 105 Carbon Dioxide 21 L BUN 17 Creatinine 1.07 Estimated GFR > 60.0 BUN/Creatinine Ratio 15.9 Glucose 107 Lactate Calcium 9.6 Total Bilirubin 1.3 AST 31 ALT 29 Alkaline Phosphatase 87 Total Protein 7.7 Albumin 4.4 Globulin 3.3 Albumin/Globulin Ratio 1.3 Lipase 161 Procalcitonin 0.20 Urine RBC Urine WBC Urine Bacteria Ur Culture Indicated? SARS-CoV-2 (PCR) 08/24/21 08/24/21 08/24/21 20:48 20:55 21:21 WBC RBC Hgb Hct MCV MCH MCHC RDW Plt Count Neut % (Auto) Lymph % (Auto) [place] % (Auto) Eos % (Auto) Baso % (Auto) Neut # (Auto) Lymph # (Auto) [place] # (Auto) Eos # (Auto) Baso # (Auto) PT INR APTT Sodium Potassium Chloride Carbon Dioxide BUN Creatinine Estimated GFR BUN/Creatinine Ratio Glucose Lactate 2.8 H Calcium Total Bilirubin AST ALT Alkaline Phosphatase Total Protein Albumin Globulin Albumin/Globulin Ratio Lipase Procalcitonin Urine RBC 0-1/hpf Urine WBC 30-100/hpf H Urine Bacteria Few (2-10) H Ur Culture Indicated? Specimen cultured SARS-CoV-2 (PCR) Negative Assessment & Plan Assessment & Plan narrative: Conner Peña is a 81-year-old gentleman with a history of hyperlipidemia, gout, prior stroke with carotid artery dissection presents after being seen this morning in the walk-in clinic diagnosed with a urinary tract infection. Over the course of the day he has had chills and rigors increasing dysuria, myalgias, general malaise, and confusion. Patient is being admitted for observation for acute hypoxic respiratory failure due to sepsis secondary to UTI with encephalopathy. 1. Acute hypoxic respiratory failure due to Sepsis secondary to urinary tract infection with encephalopathy, acute, present on admission -patient initially presented to the ED with a temp of 103.1?, tachycardic heart rate 118, tachypneic respiratory rate of 26, and in acute hypoxic respiratory failure with an O2 saturation of 88% on room air. Meets SIRS/Sepsis Criteria, SOFA score:3 -encephalopathy -resolved, hypoxia with respiratory failure -resolved -WBC 11.6, neutrophils 10,100, lactate 2.8, urine was positive for bacteria and sent for culture. -patient received 2 g Rocephin and sepsis fluid bolus in ED -continue 1 g Rocephin Q 24 hours, LR at 100 cc/hour -urine culture pending -patient demonstrated postvoid residual of 150 cc on ultrasound with bladder wall thickening-will continue to monitor postvoid residual, and pelvic ultrasound ordered for tomorrow. -monitor I&Os, monitor for septic shock. 2. Hyperlipidemia, chronic, present on admission -continue patient's Lipitor 3. Gout, chronic, present on admission -continue patient's allopurinol Code status:Full Surrogate decision maker: Spouse Morgan Peña COVID PCR:Negative COVID vaccination: Unknown DVT/VTE prophylaxis:Lovenox 40mg & SCD's Disposition: Patient admitted for observation expected length of stay less than 2 midnights. I have utilized all available immediate resources to obtain, update, or review the patient's current medications. I confirmed that the patient's advanced care plan is present, Code status is documented and/or surrogate decision maker is listed in the patient's medical record. Time Spent With Patient Critical Care time: I spent a total of [] minutes of critical care time on this patient's care today; this time is exclusive of procedural time.
[2021-08-25] VITALS (16 sets, daily range): BP systolic 108–144; BP diastolic 55–68; PULSE 79–95; RESP 18–20; TEMP 36.9–39.7; O2SAT 93–98
[2021-08-25] MEDS: LACTATED RINGERS 1,000 ML 100 ML IV (00:16)
[2021-08-25 06:22] LABS: Add Manual Diff / Slide Review NO; Basophils Absolute Auto 0 /uL (0-100); Basophils Percent Auto 0.2 % (0-2); Eosinophils Absolute Auto 0 /uL (0-450); Eosinophils Percent Auto 0.2 % (2-4); Hematocrit 36.4 % (41-53); Hemoglobin 12.2 g/dL (13.5-17.5); Lymphocytes Absolute Auto 500 /uL (1100-4500); Lymphocytes Percent Auto 2.6 % (25-40); Mean Corpuscular HGB Conc 33.7 % (30-36); Mean Corpuscular Hemoglobin 30.7 PG (26-34); Mean Corpuscular Volume 91.2 fL (80-100); Monocytes Absolute Auto 1000 /uL (0-900); Monocytes Percent Auto 4.9 % (3-14); Neutrophils Absolute Auto 19300 /uL (1500-7000); Neutrophils Percent Auto 92.1 % (50-75); Platelet Count 136 X10^3/uL (150-400); Red Blood Cell Count 3.99 X10^6/uL (4.5-5.9); Red Cell Distribution Width 14.4 % (11.6-14.8); White Blood Cell Count 20.9 X10^3/uL (4.5-11.0)
[2021-08-25 06:31] LABS: BUN Creatinine Ratio 14.6 (6-22); Blood Urea Nitrogen 14 mg/dL (9-20); Calcium 8.6 mg/dL (8.4-10.2); Carbon Dioxide 22 mmol/L (22-32); Chloride 110 mmol/L (98-107); Estimated Glomerular Filt Rate > 60.0 mL/min (>60); Glucose 123 mg/dL (80-110); HEMOLYSIS < 15 (0-50); Potassium 4.1 mmol/L (3.4-5.1); Sodium 137 mmol/L (137-145)
--- NOTE | 2021-08-25 09:00 | DI.US.S_ITS ---
PROCEDURE: US RENAL COMPLETE INDICATIONS: URINARY TRACT INFECTION. ?URINARY BLADDER THICKENING TECHNIQUE: Real-time scanning was performed of the kidneys and bladder, with image documentation. COMPARISON: [facility], CT, IVP (ABD & PEL WWO CONTRAST), 06/27/2016, 14:54. FINDINGS: Kidneys: Kidneys are normal in size. Right kidney measures 11.8 cm long; left kidney measures 11.7 cm long. Right renal cortical thickness is 1.9 cm; left renal cortical thickness is 1.7 cm. Renal cortical echotexture is normal. No hydronephrosis or nephrolithiasis. No suspicious solid mass lesions. Bilateral renal cysts. Bladder: Pre-void bladder volume is 297 mL. Post-void residual is 94 mL. Pre-void images demonstrate no intraluminal masses or stones. On pre-void images, no ureteral jets are noted with color Doppler interrogation. (Of note, ureteral jets may not be detectable in up to 25% of cases due to insufficient differences in specific gravity between ureteral and bladder urine). Miscellaneous: No free pelvic fluid. Prostate is enlarged and demonstrates 2 focal masses, measuring 22 mm and 23 mm. IMPRESSION: 1. No hydronephrosis. 2. Enlarged prostate with associated masses. Recommend correlation with PSA values. Dictated by: Faraz Valderrama M.D. on 08/25/2021 at 9:22 Approved by: Faraz Valderrama M.D. on 08/25/2021 at 9:24
[2021-08-25 09:17] LABS: Acinetobacter baumannii Not Detected (Not Detect); Enterococcus species Not Detected (Not Detect); Listeria monocytogenes Not Detected (Not Detect); Staphylococcus species Not Detected (Not Detect); Streptococcus agalactiae (Gr B Not Detected (Not Detect); Streptococcus pneumonia Not Detected (Not Detect); Streptococcus pyogenes (Gr A) Not Detected (Not Detect); Streptococcus species Not Detected (Not Detect)
[2021-08-25 09:18] LABS: Candida albicans Not Detected (Not Detect); Candida glabrata Not Detected (Not Detect); Candida krusei Not Detected (Not Detect); Candida parapsilosis Not Detected (Not Detect); Candida tropicalis Not Detected (Not Detect); E. coli Detected (Not Detect); Enterobacter cloacae complex Not Detected (Not Detect); Enterobacteriaceae species Detected (Not Detect); Haemophilus influenzae Not Detected (Not Detect); KPC (carbapenem-resist gene) Not Detected (Not Detect); Neisseria meningitidis Not Detected (Not Detect); Proteus species Not Detected (Not Detect); Pseudomonas aeruginosa Not Detected (Not Detect); Serratia marcescens Not Detected (Not Detect)
[2021-08-25] MEDS: ENOXAPARIN 40 MG/0.4 ML SYRINGE SUBCUT (10:58)
--- NOTE | 2021-08-25 11:56 | PM.PN.1 ---
Subjective Subjective Date Patient Seen: 08/25/21 Interval history: 81-year-old male admitted to the hospital with sepsis secondary to urinary tract infection. Patient continues to be febrile. Blood cultures are growing E coli. Patient is on ceftriaxone. Overall he feels significantly improved. He would like to advance his diet. Exam Vital Signs (past 8 hours): - 08/25/21 04:23 08/25/21 08:00 08/25/21 08:33 Temperature 99.1 F 99.3 F Pulse Rate 84 79 Respiratory Rate 20 18 Blood Pressure 136/68 123/65 Pulse Oximetry 95 94 95 08/25/21 11:20 Temperature 100.1 F H Pulse Rate 81 Respiratory Rate 18 Blood Pressure 131/67 Pulse Oximetry 94 Oxygen Delivery Method Room Air Oxygen Flow Rate 0 Narrative Exam Narrative: Pleasant male lying in bed in no obvious distress Resp Other: Lungs: Clear to auscultation Cardio Other: Cardiac exam: Regular rate and rhythm normal S1-S2 GI Other: Abdomen: Soft nontender nondistended Extrem Other: Extremities: No edema Objective Labs Result Diagrams: 08/25/21 06:05 08/25/21 06:05 Labs: Laboratory Results - last 24 hr 08/24/21 08/24/21 08/24/21 20:45 20:45 20:45 WBC 11.6 H RBC 4.75 Hgb 14.7 Hct 43.6 MCV 91.8 MCH 31.0 MCHC 33.8 RDW 14.3 Plt Count 165 Neut % (Auto) 86.9 H Lymph % (Auto) 11.5 L Cameron % (Auto) 0.9 L Eos % (Auto) 0.2 L Baso % (Auto) 0.5 Neut # (Auto) 70496 H Lymph # (Auto) 1300 Cameron # (Auto) 100 Eos # (Auto) 0 Baso # (Auto) 100 PT 12.7 INR 1.1 APTT 32 Sodium 136 L Potassium 4.5 Chloride 105 Carbon Dioxide 21 L BUN 17 Creatinine 1.07 Estimated GFR > 60.0 BUN/Creatinine Ratio 15.9 Glucose 107 Lactate Calcium 9.6 Total Bilirubin 1.3 AST 31 ALT 29 Alkaline Phosphatase 87 Total Protein 7.7 Albumin 4.4 Globulin 3.3 Albumin/Globulin Ratio 1.3 Lipase 161 Procalcitonin 0.20 Urine RBC Urine WBC Urine Bacteria Ur Culture Indicated? A. baumannii (PCR) Imelda albicans (PCR) C. glabrata (PCR) C. krusei (PCR) C. parapsilosis (PCR) C. tropicalis (PCR) SARS-CoV-2 (PCR) Enterobacteriac sp PCR E. cloacae complex PCR Enterococcus sp PCR E. coli (PCR) H. influenzae (PCR) Klebsiella oxytoca PCR Klebsiella pneumoniae List. monocytogenes PCR N. meningitidis (PCR) Proteus species (PCR) Serratia marcescens PCR Staphylococcus sp PCR Staph aureus (PCR) mecA-Methicil Res Gene Streptococcus sp PCR Group A Strep (PCR) Strep agalactiae (PCR) Strep pneumoniae (PCR) P. aeruginosa (PCR) Chanell/B-Vanco Res Genes KPC-Carbap Res Gene PCR 08/24/21 08/24/21 08/24/21 20:48 20:55 20:55 WBC RBC Hgb Hct MCV MCH MCHC RDW Plt Count Neut % (Auto) Lymph % (Auto) Cameron % (Auto) Eos % (Auto) Baso % (Auto) Neut # (Auto) Lymph # (Auto) Cameron # (Auto) Eos # (Auto) Baso # (Auto) PT INR APTT Sodium Potassium Chloride Carbon Dioxide BUN Creatinine Estimated GFR BUN/Creatinine Ratio Glucose Lactate 2.8 H Calcium Total Bilirubin AST ALT Alkaline Phosphatase Total Protein Albumin Globulin Albumin/Globulin Ratio Lipase Procalcitonin Urine RBC Urine WBC Urine Bacteria Ur Culture Indicated? A. baumannii (PCR) Cancelled Not detected Imelda albicans (PCR) Cancelled Not detected C. glabrata (PCR) Cancelled Not detected C. krusei (PCR) Cancelled Not detected C. parapsilosis (PCR) Cancelled Not detected C. tropicalis (PCR) Cancelled Not detected SARS-CoV-2 (PCR) Negative Enterobacteriac sp PCR Cancelled Detected H E. cloacae complex PCR Cancelled Not detected Enterococcus sp PCR Cancelled Not detected E. coli (PCR) Cancelled Detected H H. influenzae (PCR) Cancelled Not detected Klebsiella oxytoca PCR Cancelled Not detected Klebsiella pneumoniae Cancelled Not detected List. monocytogenes PCR Cancelled Not detected N. meningitidis (PCR) Cancelled Not detected Proteus species (PCR) Cancelled Not detected Serratia marcescens PCR Cancelled Not detected Staphylococcus sp PCR Cancelled Not detected Staph aureus (PCR) Cancelled Not detected mecA-Methicil Res Gene Cancelled Not Reportable Streptococcus sp PCR Cancelled Not detected Group A Strep (PCR) Cancelled Not detected Strep agalactiae (PCR) Cancelled Not detected Strep pneumoniae (PCR) Cancelled Not detected P. aeruginosa (PCR) Cancelled Not detected Chanell/B-Vanco Res Genes Cancelled Not Reportable KPC-Carbap Res Gene PCR Cancelled Not detected 08/24/21 08/24/21 08/25/21 21:21 23:19 06:05 WBC 20.9 H D RBC 3.99 L Hgb 12.2 L Hct 36.4 L MCV 91.2 MCH 30.7 MCHC 33.7 RDW 14.4 Plt Count 136 L Neut % (Auto) 92.1 H Lymph % (Auto) 2.6 L Cameron % (Auto) 4.9 Eos % (Auto) 0.2 L Baso % (Auto) 0.2 Neut # (Auto) 95333 H Lymph # (Auto) 500 L Cameron # (Auto) 1000 H Eos # (Auto) 0 Baso # (Auto) 0 PT INR APTT Sodium Potassium Chloride Carbon Dioxide BUN Creatinine Estimated GFR BUN/Creatinine Ratio Glucose Lactate 1.0 Calcium Total Bilirubin AST ALT Alkaline Phosphatase Total Protein Albumin Globulin Albumin/Globulin Ratio Lipase Procalcitonin Urine RBC 0-1/hpf Urine WBC 30-100/hpf H Urine Bacteria Few (2-10) H Ur Culture Indicated? Specimen cultured A. baumannii (PCR) Imelda albicans (PCR) C. glabrata (PCR) C. krusei (PCR) C. parapsilosis (PCR) C. tropicalis (PCR) SARS-CoV-2 (PCR) Enterobacteriac sp PCR E. cloacae complex PCR Enterococcus sp PCR E. coli (PCR) H. influenzae (PCR) Klebsiella oxytoca PCR Klebsiella pneumoniae List. monocytogenes PCR N. meningitidis (PCR) Proteus species (PCR) Serratia marcescens PCR Staphylococcus sp PCR Staph aureus (PCR) mecA-Methicil Res Gene Streptococcus sp PCR Group A Strep (PCR) Strep agalactiae (PCR) Strep pneumoniae (PCR) P. aeruginosa (PCR) Chanell/B-Vanco Res Genes KPC-Carbap Res Gene PCR 08/25/21 06:05 WBC RBC Hgb Hct MCV MCH MCHC RDW Plt Count Neut % (Auto) Lymph % (Auto) Cameron % (Auto) Eos % (Auto) Baso % (Auto) Neut # (Auto) Lymph # (Auto) Cameron # (Auto) Eos # (Auto) Baso # (Auto) PT INR APTT Sodium 137 Potassium 4.1 Chloride 110 H Carbon Dioxide 22 BUN 14 Creatinine 0.96 Estimated GFR > 60.0 BUN/Creatinine Ratio 14.6 Glucose 123 H Lactate Calcium 8.6 Total Bilirubin AST ALT Alkaline Phosphatase Total Protein Albumin Globulin Albumin/Globulin Ratio Lipase Procalcitonin Urine RBC Urine WBC Urine Bacteria Ur Culture Indicated? A. baumannii (PCR) Imelda albicans (PCR) C. glabrata (PCR) C. krusei (PCR) C. parapsilosis (PCR) C. tropicalis (PCR) SARS-CoV-2 (PCR) Enterobacteriac sp PCR E. cloacae complex PCR Enterococcus sp PCR E. coli (PCR) H. influenzae (PCR) Klebsiella oxytoca PCR Klebsiella pneumoniae List. monocytogenes PCR N. meningitidis (PCR) Proteus species (PCR) Serratia marcescens PCR Staphylococcus sp PCR Staph aureus (PCR) mecA-Methicil Res Gene Streptococcus sp PCR Group A Strep (PCR) Strep agalactiae (PCR) Strep pneumoniae (PCR) P. aeruginosa (PCR) Chanell/B-Vanco Res Genes KPC-Carbap Res Gene PCR PFSH Medical History Carotid artery dissection Gout History of stroke HTN (hypertension) Hyperlipidemia OK (obstructive sleep apnea) Retinal artery occlusion Surgical History History of cancer surgery Hx of endarterectomy (04/2012) Family History Father Heart disease Jaw cancer Social History marital status: household members: spouse occupational status: previously employed Smoking Status: Never smoker alcohol intake: current substance use type: does not use Assessment & Plan Assessment & Plan narrative: 1. Severe sepsis -manifested by acute hypoxic respiratory ,[place] [address]. He remains febrile. Blood cultures positive for Gram-negative rods, E coli -urine culture still pending -will continue ceftriaxone 2 g daily -will hold IV fluids today -await final urine culture and sensitivity -will recheck labs in the morning 2. Hyperlipidemia -continue usual medication 3. Gout I have utilized all available methods to review update and confirm the patient's current medications -continue ill-appearing Time Spent With Patient Critical Care time: I spent a total of [] minutes of critical care time on this patient's care today; this time is exclusive of procedural time.
[2021-08-25] MEDS: ACETAMINOPHEN 325 MG TABLET 650 MG PO ×2 (12:23→17:56)
--- NOTE | 2021-08-25 13:40 | CM.DANOTE ---
Addendum entered by Ilya Reza 08/25/21 14:20: Discharge Planning/Care Management CM Discharge Assessment Start: 08/25/21 13:37 Freq: Status: Active Protocol: Document 08/25/21 13:38 PAUL (Rec: 08/25/21 13:40 FJ [id number]) Discharge Planning Assessment Assigned Desktop Support Engineer Ilya BLUE DPOA/Assigned Designee Name Morgan Contact Information [phone] Advance Directives? No History Provided By Patient,Medical Record Has Patient been admitted in last 30 No days? Prior Living Arrangements House Household Members spouse Type of transporation used prior to Drives own vehicle admit Independent with ADL's Yes Is patient alert and oriented? Yes Caregiver for Another No Barriers to Discharge No Discharge Plan Home Transportation Arrangement can p/u at discharge Referrals Initiated None needed Whiteboard Updated in Patient Room with Yes name and ext. # of Desktop Support Engineer Review Status In Process Next Review Type Continued Stay Review Original Note: DC Assessment Patient is 81yo M who was admitted for acute hypoxic resp failure, UTI, confusion. Patient resides at home with his , Morgan. Patient reports no DME or adaptive devices and being fully independent at home with ADLs and in community at baseline. Patient reported he was unsure how he arrived to the hospital I was so out of it but reports feeling much closer to baseline cognitively at this time. Patient reported no caregivers in home, no history with SNF or HH. Patient reported he has no issues with managing stairs. Plan: patient is anticipated to dc home. No needs identified at this time. CM team will continue to follow throughout clinical course of admission for any discharge planning needs that may arise. Possibility for IV antibiotics is noted. Ins: Medicare with secondary of [employer] [facility] of [facility]. Ilya BLUE
[2021-08-25 16:11] LABS: Procalcitonin 4.12 ng/mL (<0.5)
--- NOTE | 2021-08-25 19:39 | PC.NURSE ---
Pt AOx4. Had US done today and was NPO. Hasn't been able to eat for the last two days due to discomfort. Fever reached 103.5 today, was given cool compresses to decrease temp to 100.7. Dr. Vergara notified of symptoms. Pt's NS 100 ml/hr was d/c per dr's order. Pt had a bowel movement today after having prune juice. Bed is in the low and call light is within reach.
[2021-08-25] MEDS: cefTRIAXone 2,000 MG in SODIUM CHLORIDE 0.9% 100 ML 200 ML IV (20:06)
--- NOTE | 2021-08-25 23:45 | PC.NURSE ---
193: temp at begin of shift is 103.5. ice packs on, cool wet towels. next temp 100.7. Dr Vergara notified by this RN to update her on the last temps. continues w/ IV abx per order. SBA mobility, BA is on for safety, due to recent illness of UTI/sepsis, and fevers. patient using his call light appropriately. tele: SR, AVB, BBB. 2400: reports a large loose bowel movement. i had prune juice earlier, now it's doing it's job. seemed SOB/exerted after amb to/from bathroom and changing his gown, pullup and socks. audible wheezing and SOB resolved fairly quickly after supine w/ legs up. spo2 98% RA. patient reports the UTI symptoms have not completely resolved yet. continues w/ dribbling after voiding in bathroom or w/ using the urinal. patient back to bed and temp 101.1 & he declined to put ice or cool cloths anywhere, just let me sleep. denies pain/discomfort. bed alarm is on, call light w/in reach.
[2021-08-26] VITALS (8 sets, daily range): BP systolic 138–161; BP diastolic 69–87; PULSE 70–95; RESP 18; TEMP 36.8–38.1; O2SAT 93–98
[2021-08-26 07:18] LABS: Add Manual Diff / Slide Review NO; Basophils Absolute Auto 0 /uL (0-100); Basophils Percent Auto 0.3 % (0-2); Eosinophils Absolute Auto 100 /uL (0-450); Eosinophils Percent Auto 0.4 % (2-4); Hematocrit 36.3 % (41-53); Hemoglobin 12.2 g/dL (13.5-17.5); Lymphocytes Absolute Auto 800 /uL (1100-4500); Lymphocytes Percent Auto 5.5 % (25-40); Mean Corpuscular HGB Conc 33.7 % (30-36); Mean Corpuscular Hemoglobin 30.7 PG (26-34); Mean Corpuscular Volume 91.2 fL (80-100); Monocytes Absolute Auto 1000 /uL (0-900); Monocytes Percent Auto 7.1 % (3-14); Neutrophils Absolute Auto 12300 /uL (1500-7000); Neutrophils Percent Auto 86.7 % (50-75); Platelet Count 132 X10^3/uL (150-400); Red Blood Cell Count 3.97 X10^6/uL (4.5-5.9); Red Cell Distribution Width 14.4 % (11.6-14.8); White Blood Cell Count 14.2 X10^3/uL (4.5-11.0)
[2021-08-26 07:20] LABS: BUN Creatinine Ratio 12.9 (6-22); Blood Urea Nitrogen 12 mg/dL (9-20); Calcium 9.3 mg/dL (8.4-10.2); Carbon Dioxide 23 mmol/L (22-32); Chloride 107 mmol/L (98-107); Estimated Glomerular Filt Rate > 60.0 mL/min (>60); Glucose 122 mg/dL (80-110); HEMOLYSIS < 15 (0-50); Potassium 3.7 mmol/L (3.4-5.1); Sodium 134 mmol/L (137-145)
[2021-08-26] MEDS: ENOXAPARIN 40 MG/0.4 ML SYRINGE SUBCUT (08:41)
--- NOTE | 2021-08-26 12:29 | P.PN_ITS ---
Subjective Subjective Date Patient Seen: 08/26/21 Interval history: 81 y/o male admitted with Sepsis secondary to a UTI. Overall he is feeling better today. Still with low grade fevers. He tolerated breakfast without difficulty. Exam Vital Signs (past 8 hours): - 08/26/21 05:00 08/26/21 08:00 08/26/21 11:08 Temperature 100.5 F H 98.7 F Pulse Rate 86 76 Respiratory Rate 18 18 Blood Pressure 147/69 H 140/71 Pulse Oximetry 93 93 93 Oxygen Delivery Method Room Air Oxygen Flow Rate 0 Narrative Exam Narrative: pleasant male resting in bed in No Acute distress Resp Other: Lungs: clear to auscultation Cardio Other: RRR nl Sl S2 3/6 LIZETTE GI Other: Abd: soft/ non tender Extrem Other: no edema Objective Labs Result Diagrams: 08/26/21 06:50 08/26/21 06:50 Labs: Laboratory Results - last 24 hr 08/25/21 08/26/21 08/26/21 15:15 06:50 06:50 WBC 14.2 H RBC 3.97 L Hgb 12.2 L Hct 36.3 L MCV 91.2 MCH 30.7 MCHC 33.7 RDW 14.4 Plt Count 132 L Neut % (Auto) 86.7 H Lymph % (Auto) 5.5 L Garland % (Auto) 7.1 Eos % (Auto) 0.4 L Baso % (Auto) 0.3 Neut # (Auto) 71257 H Lymph # (Auto) 800 L Garland # (Auto) 1000 H Eos # (Auto) 100 Baso # (Auto) 0 Sodium 134 L Potassium 3.7 Chloride 107 Carbon Dioxide 23 BUN 12 Creatinine 0.93 Estimated GFR > 60.0 BUN/Creatinine Ratio 12.9 Glucose 122 H Calcium 9.3 Procalcitonin 4.12 H PFSH Medical History Carotid artery dissection Gout History of stroke HTN (hypertension) Hyperlipidemia OK (obstructive sleep apnea) Retinal artery occlusion Surgical History History of cancer surgery Hx of endarterectomy (04/2012) Family History Father Heart disease Jaw cancer Social History marital status: household members: spouse occupational status: previously employed Smoking Status: Never smoker alcohol intake: current substance use type: does not use Assessment & Plan Assessment & Plan narrative: Severe sepsis -manifested by acute hypoxic respiratory Failure- [place] [address].? He remains febrile.? Blood cultures positive for Gram-negative rods, E coli -urine culture still pending -will continue ceftriaxone 2 g daily -will hold IV fluids today -await final urine culture and sensitivity -will recheck labs in the morning - Urine and Blood cultures growing ECOLI pansensitive -WBC down to 14K today -tolerating diet - -continue Ceftriaxone 2. Hyperlipidemia -continue usual medication, lipitor 3. Gout -continue allopurinol Time Spent With Patient Critical Care time: I spent a total of [] minutes of critical care time on this patient's care today; this time is exclusive of procedural time.
[2021-08-26] MEDS: cefTRIAXone 2,000 MG in SODIUM CHLORIDE 0.9% 100 ML 200 ML IV (20:46)
[2021-08-26] MEDS: ATORVASTATIN 20 MG TABLET 80 MG PO (20:46)
--- NOTE | 2021-08-26 22:35 | PC.NURSE ---
Addendum entered by Dotty Fowler R.N. 08/27/21 00:52: parameters given to contact Arabella for sustained hr >110. SBA to/from bathroom, HR 150's recovers fairly quickly, patient slightly SOB but denies feeling winded. patient mentioned being more tired than i was yesterday, problaly because i got up in my chair today for a few hours. 2nd BRP and h/r returns to 150 w/ exertion. BSC available next to bed, explained to patient the importance of resting and not exerting himself. he states he understands. EKG completed, Afib 106. call light w/in reach, frequent safety and room checks. Bed alarm on. Original Note: 2234:call from ICU Diana: patient is in Afib, hr 90s. michaela lopez MD notified.
[2021-08-27] VITALS (16 sets, daily range): BP systolic 113–163; BP diastolic 68–91; PULSE 75–98; RESP 16–20; TEMP 36.4–37.6; O2SAT 89–96
--- NOTE | 2021-08-27 02:16 | PC.NURSE ---
Addendum entered by Dotty Fowler R.N. 08/27/21 08:03: tolerated metoprolol ivp slowly, still in afib, rate has slowed slightly to 86-100. becomes exerted easily, o2 via 3lpm NC as sats on RA were 87%. per Arabella patient will see cardiology on outpatient basis. patient states he used to see Dr Yung in [place], was preemptively seeing him in the last 10 years. patient is resting quietly, CTM Bed alarm on, call light w/in reach. Addendum entered by Dotty Fowler R.N. 08/27/21 02:39: HR 116. metoprolol 5mg IVP given, HR 91, b/p 148/87 Original Note: HR 150 when exerted, patient sitting EOB. using BSC per instructions as to not exert himself. call to Arabella, order received to begin Metoprolol 5mg IVP. max 3 doses. patient has been c/o fatigue, otherwise symptomatic. proceeding to Metoprolol IVP.
[2021-08-27] MEDS: METOPROLOL TARTRATE 5 MG/5 ML INJ IV ×2 (02:31→02:46)
[2021-08-27 07:34] LABS: Add Manual Diff / Slide Review NO; Basophils Absolute Auto 0 /uL (0-100); Basophils Percent Auto 0.4 % (0-2); Eosinophils Absolute Auto 100 /uL (0-450); Eosinophils Percent Auto 0.8 % (2-4); Hematocrit 41.8 % (41-53); Hemoglobin 13.9 g/dL (13.5-17.5); Lymphocytes Absolute Auto 600 /uL (1100-4500); Lymphocytes Percent Auto 5.3 % (25-40); Mean Corpuscular HGB Conc 33.4 % (30-36); Mean Corpuscular Hemoglobin 30.7 PG (26-34); Mean Corpuscular Volume 91.8 fL (80-100); Monocytes Absolute Auto 1000 /uL (0-900); Monocytes Percent Auto 8.6 % (3-14); Neutrophils Absolute Auto 9600 /uL (1500-7000); Neutrophils Percent Auto 84.9 % (50-75); Platelet Count 152 X10^3/uL (150-400); Red Blood Cell Count 4.55 X10^6/uL (4.5-5.9); Red Cell Distribution Width 14.6 % (11.6-14.8); White Blood Cell Count 11.3 X10^3/uL (4.5-11.0)
[2021-08-27 07:51] LABS: BUN Creatinine Ratio 15.9 (6-22); Blood Urea Nitrogen 14 mg/dL (9-20); Carbon Dioxide 24 mmol/L (22-32); Chloride 105 mmol/L (98-107); Estimated Glomerular Filt Rate > 60.0 mL/min (>60); Glucose 128 mg/dL (80-110); HEMOLYSIS 21 (0-50); Potassium 3.7 mmol/L (3.4-5.1); Sodium 135 mmol/L (137-145)
[2021-08-27 08:07] LABS: Procalcitonin 1.53 ng/mL (<0.5)
[2021-08-27] MEDS: allopurinoL 100 MG TABLET 400 MG PO (09:50)
[2021-08-27] MEDS: ENOXAPARIN 40 MG/0.4 ML SYRINGE SUBCUT (09:50)
[2021-08-27] MEDS: METOPROLOL ER 25 MG TABLET PO (09:50)
--- NOTE | 2021-08-27 10:57 | DI.ECHO.S_ITS ---
[place] +---------+ [facility] +---------+ : : [address] : : : : [id number] : : : : Phone: [phone]+ Echocardiogram Report + + :Name: JOSE PRATT Study Date: 08/28/2021 Height: 72 in : :[facility] ReadingLocation: Weight: 201 lb : : Gender: Male BSA: 2.1 m2 : :: 1940 Age: 81 yrs BP: 127/74 mmHg: :Reason For Study: ATRIAL FIBRILLATION : :Ordering Physician: JUAN, : :FERMIN Performed By: Mally Tejada : :Referring: FERMIN MARTINEZ : + + Interpretation Summary The left ventricle is normal in size and wall thickness. The ejection fraction is estimated to be 55-60%. The right ventricle is normal in size and function. There is mild MR. There is mild tricuspid regurgitation. The right ventricular systolic pressure is estimated to be at least 37 mmHg based on an estimated right atrial pressure of 3 mm Hg. Procedure: A two-dimensional transthoracic echocardiogram with color flow and Doppler was performed. The study quality was technically adequate. There is no prior echocardiogram noted for this patient. The patient was in sinus rhythm with heart rates between 66-80 bpm during the exam. Left Ventricle: The left ventricle is normal in size and wall thickness. There is no thrombus. The ejection fraction is estimated to be 55-60%. There are no focal wall motion abnormalities. MV E/A: 1.5 Med Peak E' Jose Miguel: 8.1 cm/sec E/E' med: 11.7. Right Ventricle: The right ventricle is normal in size and function. Atria: The left atrial size is normal. Right atrial size is normal. There is no Doppler evidence for an interatrial shunt. Mitral Valve: The mitral valve is normal. There is mild mitral regurgitation. Aortic Valve: The aortic valve is trileaflet. The aortic valve opens well. There is mild aortic valve sclerosis. There is discrete nodular thickening of the non- coronary cusp. There is no aortic valve stenosis. No aortic regurgitation is present. Tricuspid Valve: The tricuspid valve is normal. There is mild tricuspid regurgitation. The right ventricular systolic pressure is estimated to be at least 37 mmHg based on an estimated right atrial pressure of 3 mm Hg. Pulmonic Valve: The pulmonic valve leaflets are thin and pliable; valve motion is normal. There is no pulmonic valvular regurgitation. Great Vessels: The aortic root is normal size. The ascending aorta is at the upper limits of normal in size. The IVC is of normal diameter and collapses greater than 50% with a sniff. This suggests a low right atrial pressure of 3 mm Hg. Pericardium/ Pleura There is no pericardial effusion. There is no pleural effusion. MMode/2D Measurements & Calculations LVIDd: 5.0 cm LVOT diam: 2.0 cm LVIDs: 3.3 cm Ao root diam: 3.1 cm FS: 32.9 % asc Aorta Diam: 3.6 cm IVSd: 0.94 cm LVPWd: 0.94 cm LV perez. diameter/BSA (cm/m^2): 2.3 LV sys. diameter/BSA (cm/m^2): 1.6 LA A2 area: 23.4 cm2 RA long axis: 5.4 cm LA A4 area: 20.8 cm2 RA area: 17.0 cm2 LA length (vol): 6.4 cm RA vol: 45.6 ml LA vol: 64.7 ml RA : 21.3 ml/m2 LA vol index: 30.3 ml/m2 IVC diam: 2.0 cm RVD1 (basal): 3.9 cm TAPSE: 2.6 cm Doppler Measurements & Calculations Ao V2 max: 172.8 cm/sec LVOT Max Jose Miguel: 82.7 cm/sec Ao V2 mean: 122.9 cm/sec LV V1 max P.7 mmHg Ao max P.0 mmHg LV V1 VTI: 15.5 cm Ao mean P.7 mmHg MALORIE(I,D): 1.4 cm2 Ao V2 VTI: 35.6 cm MALORIE(V,D): 1.6 cm2 sev ratio: 0.44 MALORIE indexed to BSA (cm^2/m^2): 0.67 MV E max jose miguel: 94.7 cm/sec TR max jose miguel: 292.0 cm/sec MV A max jose miguel: 65.1 cm/sec TR max P.1 mmHg MV E/A: 1.5 PA V2 max: 121.5 cm/sec Med Peak E' Jose Miguel: 8.1 cm/sec PA V2 mean: 77.0 cm/sec E/E' med: 11.7 PA mean P.7 mmHg Lat Peak E' Jose Miguel: 8.6 cm/sec PA pr(Accel): 31.0 mmHg E/E' lat: 11.0 E/e' average: 11.4 MV dec time: 0.24 sec SV(LVOT): 50.8 ml Reading Physician:11:49 AM
--- NOTE | 2021-08-27 15:08 | CM.DPC ---
DCP Cont: Discussed patient during team rounds. He has developed a new onset of atrial fib. He is not deemed medically ready for discharge at this time. Patient was originally admitted for UTI/Sepsis. Spouse has been at bedside periodically. P: DCP to continue to follow and will be available for any resources needed. Plan is for home when stable. Lou Brandt RN/Decorative Cutting Machine Tender
--- NOTE | 2021-08-27 15:55 | PM.PN.1 ---
Subjective Subjective Date Patient Seen: 08/27/21 Interval history: 81-year-old male admitted to the hospital for sepsis secondary to urinary tract infection. Patient feels significantly improved. However last evening he developed rapid atrial fibrillation. He was started on an oral beta-lisa with improvement of his heart rate. Patient is not aware of any prior episodes of atrial fibrillation. He denies any palpitation shortness of breath or chest pain. Exam Vital Signs (past 8 hours): - 08/27/21 08:00 08/27/21 08:15 08/27/21 09:50 Temperature 97.5 F L Pulse Rate 98 H 98 H Respiratory Rate 18 Blood Pressure 120/71 113/68 Pulse Oximetry 95 95 08/27/21 12:00 08/27/21 12:08 Temperature 98.4 F Pulse Rate 90 Respiratory Rate 18 Blood Pressure 130/74 Pulse Oximetry 96 94 Oxygen Delivery Method Room Air Oxygen Flow Rate 0 Narrative Exam Narrative: Pleasant gentleman lying in bed in no obvious distress Resp Other: Lungs clear to auscultation Cardio Other: Irregularly irregular, normal S1-S2 GI Other: Abdomen soft nontender nondistended Extrem Other: Extremity no edema Objective Labs Result Diagrams: 08/27/21 06:35 08/27/21 06:35 Labs: Laboratory Results - last 24 hr 08/27/21 08/27/21 08/27/21 06:35 06:35 06:35 WBC 11.3 H RBC 4.55 Hgb 13.9 Hct 41.8 MCV 91.8 MCH 30.7 MCHC 33.4 RDW 14.6 Plt Count 152 Neut % (Auto) 84.9 H Lymph % (Auto) 5.3 L Greenlee % (Auto) 8.6 Eos % (Auto) 0.8 L Baso % (Auto) 0.4 Neut # (Auto) 9600 H Lymph # (Auto) 600 L Greenlee # (Auto) 1000 H Eos # (Auto) 100 Baso # (Auto) 0 Sodium 135 L Potassium 3.7 Chloride 105 Carbon Dioxide 24 BUN 14 Creatinine 0.88 Estimated GFR > 60.0 BUN/Creatinine Ratio 15.9 Glucose 128 H Calcium 10.0 Procalcitonin 1.53 H PFSH Medical History Carotid artery dissection Gout History of stroke HTN (hypertension) Hyperlipidemia OK (obstructive sleep apnea) Retinal artery occlusion Surgical History History of cancer surgery Hx of endarterectomy (04/2012) Family History Father Heart disease Jaw cancer Social History marital status: household members: spouse occupational status: previously employed Smoking Status: Never smoker alcohol intake: current substance use type: does not use Assessment & Plan Assessment & Plan narrative: Severe sepsis -manifested by acute hypoxic respiratory Failure- [place] [address].? He remains febrile.? Blood cultures positive for Gram-negative rods, E coli -urine culture growing E coli, pansensitive -will continue ceftriaxone 2 g daily -will hold IV fluids today -will recheck labs in the morning -WBC down to 11K today -tolerating diet - -continue Ceftriaxone 2. Paroxysmal atrial fibrillation -Patient with improved heart rate on metoprolol -will obtain cardiac echo -will start Eliquis for anticoagulation 3. Hyperlipidemia -continue usual medication, lipitor 3. Gout -continue allopurinol Anticipate discharge home tomorrow Time Spent With Patient Critical Care time: I spent a total of [] minutes of critical care time on this patient's care today; this time is exclusive of procedural time.
[2021-08-27] MEDS: ATORVASTATIN 20 MG TABLET 80 MG PO (21:06)
[2021-08-27] MEDS: APIXABAN 5 MG TABLET PO (21:06)
[2021-08-27] MEDS: cefTRIAXone 2,000 MG in SODIUM CHLORIDE 0.9% 100 ML 200 ML IV (21:07)
[2021-08-27] MEDS: SODIUM CHLORIDE 0.9% FLUSH 10 ML IV (21:07)
--- NOTE | 2021-08-27 22:10 | RT ---
At 2127, went to assess pt and setup home CPAP unit. Per RN, and day shift RN encouraged pt to wear home CPAP. Pt educated about benefits of CPAP by me and still refused to wear CPAP.
--- NOTE | 2021-08-27 22:41 | PC.NURSE ---
Patient is alert and oriented. Breath sounds CTA with RA sat of 94%; refusing CPAP. HR irregular w/telemetry reading of afib CVR although noted to become tachycardic when up to the bathroom. Denied nausea. BT present and abdomen is soft. Denied dysuria, frequency or urgency with urination. Is able to move self in bed and up to bathroom with SBA. Refuses SCD's so reminded to ankle wave. Denied pain. Fall risk score is moderate and bed alarm is activated.
[2021-08-28] VITALS (7 sets, daily range): BP systolic 127–136; BP diastolic 73–80; PULSE 62–78; RESP 17–18; TEMP 36.6–36.8; O2SAT 95–99
[2021-08-28 06:24] LABS: BUN Creatinine Ratio 16.8 (6-22); Blood Urea Nitrogen 19 mg/dL (9-20); Calcium 10.4 mg/dL (8.4-10.2); Carbon Dioxide 27 mmol/L (22-32); Chloride 107 mmol/L (98-107); Estimated Glomerular Filt Rate > 60.0 mL/min (>60); Glucose 121 mg/dL (80-110); HEMOLYSIS 32 (0-50); Magnesium 2.1 mg/dL (1.6-2.3); Potassium 3.8 mmol/L (3.4-5.1); Sodium 140 mmol/L (137-145)
[2021-08-28 06:46] LABS: Add Manual Diff / Slide Review NO; Basophils Absolute Auto 100 /uL (0-100); Basophils Percent Auto 0.8 % (0-2); Eosinophils Absolute Auto 300 /uL (0-450); Eosinophils Percent Auto 5.2 % (2-4); Hematocrit 39.9 % (41-53); Hemoglobin 13.5 g/dL (13.5-17.5); Lymphocytes Absolute Auto 1000 /uL (1100-4500); Lymphocytes Percent Auto 15.4 % (25-40); Mean Corpuscular HGB Conc 33.9 % (30-36); Mean Corpuscular Hemoglobin 30.5 PG (26-34); Mean Corpuscular Volume 89.8 fL (80-100); Monocytes Absolute Auto 1000 /uL (0-900); Monocytes Percent Auto 15.6 % (3-14); Neutrophils Absolute Auto 4100 /uL (1500-7000); Platelet Count 175 X10^3/uL (150-400); Red Blood Cell Count 4.45 X10^6/uL (4.5-5.9); Red Cell Distribution Width 14.6 % (11.6-14.8); White Blood Cell Count 6.6 X10^3/uL (4.5-11.0)
[2021-08-28 07:15] LABS: Thyroid Stimulating Hormone 3.38 uIU/mL (0.47-4.68)
[2021-08-28] MEDS: APIXABAN 5 MG TABLET PO (09:29)
[2021-08-28] MEDS: METOPROLOL ER 25 MG TABLET PO (09:29)
[2021-08-28] MEDS: SODIUM CHLORIDE 0.9% FLUSH 10 ML IV (09:29)
[2021-08-28] MEDS: allopurinoL 100 MG TABLET 200 MG PO (09:30)
--- NOTE | 2021-08-28 13:04 | PM.DS.1 ---
History of Present Illness History of Present Illness Date Patient Seen: 08/28/21 Time Patient Seen: 13:04 Chief complaint: UTI Narrative: Conner Peña is a 81-year-old gentleman with a history of hyperlipidemia, gout, prior stroke with carotid artery dissection presents after being seen this morning in the walk-in clinic diagnosed with a urinary tract infection started on cephalexin taking a single dose and noting the symptoms are dramatically worse.? This morning he had been having chills and vitals were relatively benign at 9:00 a.m..? Urine was sent for culture.? Over the course of the day he has had chills and rigors increasing dysuria, myalgias, general malaise, and confusion.? He reports no abdominal pain chest pain, palpitations, dyspnea, skin changes, lower extremity edema, headaches.? On arrival in the emergency department he is not hypotensive but he is tachycardic and febrile.? Sepsis order set is started and 2 g of ceftriaxone is initiated after blood cultures are drawn.? Patient's vitals upon admit is febrile at 1:02 a.m. 0.2, BP 115/58, HR 97, R 20, O2 saturation 98% on 2 L nasal cannula.? Patient does have a slight elevated WBC 11.6 with a left shift neutrophils 10,100, the rest of CBC and chemistry are WNL.? Patient's urine had wbc's 30-100, bacteria few 2-10, urine sent for culture.? Procalcitonin WNL lipase WNL, lactate 2.8.? Patient's chest x-ray demonstrated minimal streaky bibasilar opacities favored to represent atelectasis; however, early developing airspace disease/pneumonia not excluded if clinically appropriate.? Patient was given 2 g Rocephin and sepsis bolus in ED and clinical presentation improved significantly, encephalopathy and no longer required oxygen.? Post void residual ultrasound was performed and found the patient to retain 150 cc also some wall thickening was noted.? Patient admitted for acute hypoxic respiratory failure due to sepsis secondary to UTI with encephalopathy. Discharge Providers Provider Date of admission: 08/25/21 11:30 Discharge Date: 08/28/21 Primary care physician: Ryder Aguilar MD Consults: 08/27/21 02:55 Consult to Respiratory Therapy Evaluate & Treat Comment: Physician Instructions: Evaluate and treat Discharge provider: Tammy Vergara MD Summary Hospital Course Discharge Diagnosis: 1. Severe Sepsis, present on admission-secondary to acute urinary tract infection 2. Ecol bacteremia, etiology of UTI 3. Paroxsymal Atrial Fibrillation 4. Hyperlipidemia 5. Gout Hospital Course: Patient was admitted to the hospital for Severe Sepsis secondary to a urinary tract infection. The patient was hypoxic which did improve. He had a markedly elevated WBC of 20.6, which improved. Both blood and urine cultures were positive for ECOLI. The patient was treated with ceftriaxone with improvement of his WBC. He developed rapid atrial fibrillation and was treated with metoporolol for rate control. The patient underwent cardiac echo, his EF was 55-60%, right ventricular pressure is estimated to be 37mmgh., There is muld MR, Mild TR, Right venticle normal size and function. The patient's white count normalized to 6.1, he felt significantly improved and was deemed appropriate for discharge home. The patient converted to sinus rhythm and had no further episodes of atrial fibrillation. He was instructed to follow up with his wrapper off for further recommendations. Status at Discharge Cognitive/behavioral status at discharge: oriented Functional status at discharge: independent ambulation Overall status at discharge: patient is back to baseline Exam Vital Signs (past 8 hours): - 08/28/21 09:29 08/28/21 09:30 08/28/21 09:58 Temperature 98.2 F Pulse Rate 70 Respiratory Rate 17 Blood Pressure 127/74 131/73 Pulse Oximetry 95 95 Oxygen Delivery Method Room Air Oxygen Flow Rate 0 Narrative Exam Narrative: pleasant male in no acute distress Resp Other: Lungs: clear to auscultation Cardio Other: CV: RRR nl Sl S2 GI Other: Abd: soft/ non tender/ non distended Extrem Other: no edema Objective Labs Result Diagrams: 08/28/21 05:50 08/28/21 05:50 Labs: Laboratory Results - last 24 hr 08/28/21 08/28/21 08/28/21 05:50 05:50 05:50 WBC 6.6 RBC 4.45 L Hgb 13.5 Hct 39.9 L MCV 89.8 MCH 30.5 MCHC 33.9 RDW 14.6 Plt Count 175 Neut % (Auto) 63.0 D Lymph % (Auto) 15.4 L [place] % (Auto) 15.6 H Eos % (Auto) 5.2 H Baso % (Auto) 0.8 Neut # (Auto) 4100 Lymph # (Auto) 1000 L [place] # (Auto) 1000 H Eos # (Auto) 300 Baso # (Auto) 100 Sodium 140 Potassium 3.8 Chloride 107 Carbon Dioxide 27 BUN 19 Creatinine 1.13 Estimated GFR > 60.0 BUN/Creatinine Ratio 16.8 Glucose 121 H Calcium 10.4 H Magnesium 2.1 TSH 3.38 PFSH Medical History Carotid artery dissection Gout History of stroke HTN (hypertension) Hyperlipidemia [place] (obstructive sleep apnea) Retinal artery occlusion Surgical History History of cancer surgery Hx of endarterectomy (04/2012) Family History Father Heart disease Jaw cancer Social History marital status: household members: spouse occupational status: previously employed Smoking Status: Never smoker alcohol intake: current substance use type: does not use Discharge Assessment & Plan Assessment and Plan Assessment: Severe Sepsis, present on admission-secondary to acute urinary tract infection 2. Ecol bacteremia, etiology of UTI 3. Paroxsymal Atrial Fibrillation 4. Hyperlipidemia 5. Gout Plan of Treatment: f/u with Dr. Fernandez next week regarding atrial fibrillation F/u with PCP re: UTI Discharge Plan Discharge Plan Patient Disposition: Home Discharge orders & Medications Prescriptions: New levofloxacin 250 mg tablet 250 mg PO DAILY 7 Days 0RF levofloxacin 250 mg tablet 250 mg PO DAILY 7 Days 0RF Eliquis 5 mg tablet 5 mg PO BID Qty: 60 0RF metoprolol succinate 25 mg tablet extended release 24 hr 12.5 mg PO BID Qty: 60 0RF levofloxacin 250 mg tablet 250 mg PO DAILY 7 Days 0RF Continued allopurinol 300 MG tablet 400 mg PO QDAY Qty: 0 0RF cranberry extract 250 mg Tablet 250 mg PO DAILY Qty: 0 0RF cholecalciferol (vitamin D3) [Vitamin D3] 2,000 UNIT tablet 1 tab PO QDAY Qty: 0 0RF polyethylene glycol 3350 [Miralax] 17 gram/dose powder 17 g PO DAILY 0RF Ultra CoQ10 75 mg capsule 75 mg PO DAILY 0RF PreserVision AREDS-2 250-90-40-1 mg Capsule 1 tab PO BID 0RF atorvastatin [Lipitor] 80 mg tablet 80 mg PO DAILY 0RF Discontinued cephalexin 500 mg capsule 500 mg PO QID 7 Days Qty: 28 0RF aspirin 325 mg tablet 162.5 mg PO DAILY 0RF No Action (DME) Respironics Remstar CPAP Qty: 1 0RF Dose Instruction: As directed Label Comments: Pressure: 6-12 cmH2O DME: [facility] Rx Instructions: As directed Follow up/Referrals: Ryder Aguilar MD [Primary Care Provider] - Discharge Health Status Multidrug resistant organism: No MDRO Diet/Activity/Treatments Diet: Low-cholesterol Skin/Wound/Dressing Care Report to your healthcare provider any signs of infection, such as:: chills, fever Visit Report/Discharge Packet Instructions: DI for Atrial Fibrillation, DI for Urinary Tract Infection (UTI), Apixaban Discharge Data Primary Care Provider: Ryder Aguilar V
--- NOTE | 2021-08-28 13:55 | CM.DPC ---
DCP Discharge Home Per MD, pt is medically stable to d/c home today after having AFIB last night and then Echo was completed today and results normal and no identified barriers to d/c. RT educated pt on importance of home CPAP use and pt continued to decline CPAP while admitted. Pt has supportive spouse at home. Plan: Patient to d/c home today via spouse POV and no SW needs at this time. RYAN Davis
--- NOTE | 2021-08-28 17:29 | PC.NURSE ---
Pt is dressed and ready for discharge home with Spouse. IV's removed. Tele removed. Went over d/c instructions with Pt and Spouse-discussed d/c meds, time of last dose, reviewed stroke education, beta lisa affect on heart rate and getting up slowly from bed or chair, keeping well hydrated, wearing his cpap, and following up with Cardiology and his PCP. Pt's Spouse has already made an appointment with PCP and will call Cardiology tomorrow to set up an appointment with Dr. Ferguson. Reminded Pt to watch for signs of overanticoagulation such as increased bruising or bleeding and to call his PCP if this occurs. Pt and Spouse denied further questions and Pt was taken out via w/c to POV by RN with Spouse and all belongings.
== END 2021-08-28 17:40 | disposition home or self-care (01) | DRG 871 ==
LOC: ED 21:33 → AC 23:33
PROVIDERS: Internal Medicine; Admitting Provider Nurse Practitioner Family; Emergency Provider Emergency Medicine; PCP Internal Medicine; Referring Provider Emergency Medicine; Visit Provider Nurse Practitioner Family
DX: A41.51 Sepsis due to Escherichia coli [E. coli] (principal); J96.01 Acute respiratory failure with hypoxia; N39.0 Urinary tract infection, site not specified; G93.40 Encephalopathy, unspecified; R65.20 Severe sepsis without septic shock; M1A.9XX0 Chronic gout, unspecified, without tophus (tophi); E78.5 Hyperlipidemia, unspecified; G47.33 Obstructive sleep apnea (adult) (pediatric); I48.0 Paroxysmal atrial fibrillation; I10 Essential (primary) hypertension; Z20.822 Contact with and (suspected) exposure to COVID-19
CPT/HCPCS: 36415; 71045; 76770; 80048; 80053; 81003; 81015; 83605; 83690; 83735; 84145; 84443; 85025; 85610; 85730; 87040; 87077; 87086; 87150; 87186; 87205; 87635; 93005; 93010; 93306; 94760; 96361; 96365; 99285; C9803; G0378; J0696; J1650

== ENCOUNTER → 2021-11-26 10:31 | Outpatient (CLI) | payer MEDICARE, BC, SELFPAY ==
[2021-08-24 23:40] VITALS: BMI 27.8
--- NOTE | 2021-11-26 | DI.US.S_ITS ---
PROCEDURE: US CAROTID DOPPLER BI INDICATIONS: HX RIGHT CAROTID STENOSIS/ENDARTERECTOMY TECHNIQUE: Color and pulse Doppler interrogation was performed of both carotid systems, with image documentation and velocity measurements. COMPARISON: [facility], , STROKE PROTOCOL, 04/23/2012, 15:17. [facility], US, CAROTID ARTERY DOPPLER BILAT, 04/27/2012, 15:11. FINDINGS: Stenosis calculations are based on SRU (Society of Radiologists in Ultrasound) criteria. The flow velocities and the arterial waveforms are normal within both carotid arterial systems. Atherosclerotic plaque is seen on both sides. Prior right endarterectomy change can be seen. The estimated degree of internal carotid artery stenosis is less than 50%. Antegrade flow is confirmed within both vertebral arteries. IMPRESSION: No hemodynamically significant stenosis is seen. No significant change from the prior. Atherosclerotic plaque is noted bilaterally. Dictated by: Will Gorman M.D. on 11/26/2021 at 11:14 Approved by: Will Gorman M.D. on 11/26/2021 at 11:18
== END ==
PROVIDERS: PCP Internal Medicine; Referring Provider Nurse Practitioner; Visit Provider Nurse Practitioner
DX: I65.23 Occlusion and stenosis of bilateral carotid arteries (principal)
CPT/HCPCS: 93880

== ENCOUNTER → 2022-01-10 15:57 | Outpatient (CLI) | payer MEDICARE, BC, SELFPAY ==
[2021-08-24 23:40] VITALS: BMI 27.8
[2022-01-10 17:36] LABS: Hemoglobin 15.2 g/dL (13.5-17.5); Mean Corpuscular HGB Conc 34.4 % (30-36); Mean Corpuscular Hemoglobin 31.3 PG (26-34); Platelet Count 174 X10^3/uL (150-400); Red Blood Cell Count 4.83 X10^6/uL (4.5-5.9); Red Cell Distribution Width 14.8 % (11.6-14.8); White Blood Cell Count 10.2 X10^3/uL (4.5-11.0)
[2022-01-10 17:40] LABS: Alanine Aminotransferase 28 IU/L (<50); Albumin 4.6 g/dL (3.5-5.0); Albumin Globulin Ratio 1.3 (1.0-2.8); Alkaline Phosphatase 86 U/L (38-126); Aspartate Aminotransferase 30 IU/L (17-59); BUN Creatinine Ratio 21.9 (6-22); Bilirubin Total 0.6 mg/dL (0.2-1.3); Blood Urea Nitrogen 23 mg/dL (9-20); Calcium 10.1 mg/dL (8.4-10.2); Carbon Dioxide 23 mmol/L (22-32); Chloride 105 mmol/L (98-107); Cholesterol 133 mg/dL (140-199); Estimated Glomerular Filt Rate > 60 mL/min (>60); Globulin 3.5 g/dL (1.7-4.1); Glucose 87 mg/dL (80-110); HDL Cholesterol 29 mg/dL (40-60); HEMOLYSIS < 15 (0-50); LDL Cholesterol Calculated 70 mg/dL (<100); Potassium 4.2 mmol/L (3.4-5.1); Sodium 141 mmol/L (137-145); Total Protein 8.1 g/dL (6.3-8.2); Triglycerides 171 mg/dL (35-150); Uric Acid 4.2 mg/dL (3.5-8.5)
[2022-01-10 18:28] LABS: TSH w/ Reflex to FT4 3.16 uIU/mL (0.47-4.68)
[2022-01-11 08:52] LABS: Calcium 10.3 mg/dL (8.6-10.2); Parathyroid Hormone, Intact 145 pg/mL (15-65)
== END ==
PROVIDERS: PCP Internal Medicine; Referring Provider Internal Medicine; Visit Provider Internal Medicine
DX: E21.3 Hyperparathyroidism, unspecified (principal); E78.2 Mixed hyperlipidemia; I48.0 Paroxysmal atrial fibrillation; I67.9 Cerebrovascular disease, unspecified; M1A.9XX0 Chronic gout, unspecified, without tophus (tophi)
CPT/HCPCS: 36415; 80053; 80061; 82310; 83970; 84443; 84550; 85027

== ENCOUNTER → 2022-07-14 09:31 | Outpatient (CLI) | payer MEDICARE, BC, SELFPAY ==
[2021-08-24 23:40] VITALS: BMI 27.8
[2022-07-14 11:05] LABS: Hematocrit 43.4 % (41-53); Hemoglobin 14.6 g/dL (13.5-17.5); Mean Corpuscular HGB Conc 33.8 % (30-36); Mean Corpuscular Hemoglobin 31.1 PG (26-34); Mean Corpuscular Volume 92.1 fL (80-100); Platelet Count 194 X10^3/uL (150-400); Red Blood Cell Count 4.71 X10^6/uL (4.5-5.9); Red Cell Distribution Width 14.7 % (11.6-14.8); White Blood Cell Count 8.5 X10^3/uL (4.5-11.0)
[2022-07-14 11:14] LABS: Hemoglobin A1C% w Est Avg Glu 5.5 % (4.0-6.0)
[2022-07-14 11:29] LABS: Alanine Aminotransferase 28 IU/L (<50); Albumin 4.3 g/dL (3.5-5.0); Albumin Globulin Ratio 1.2 (1.0-2.8); Alkaline Phosphatase 88 U/L (38-126); Aspartate Aminotransferase 25 IU/L (17-59); BUN Creatinine Ratio 14.7 (6-22); Bilirubin Total 0.7 mg/dL (0.2-1.3); Blood Urea Nitrogen 17 mg/dL (9-20); Calcium 10.5 mg/dL (8.4-10.2); Carbon Dioxide 25 mmol/L (22-32); Chloride 107 mmol/L (98-107); Cholesterol 113 mg/dL (140-199); Estimated Glomerular Filt Rate > 60 mL/min (>60); Globulin 3.5 g/dL (1.7-4.1); Glucose 101 mg/dL (80-110); HDL Cholesterol 26 mg/dL (40-60); HEMOLYSIS < 15 (0-50); LDL Cholesterol Calculated 62 mg/dL (<100); Potassium 4.3 mmol/L (3.4-5.1); Sodium 141 mmol/L (137-145); Total Protein 7.8 g/dL (6.3-8.2); Triglycerides 125 mg/dL (35-150)
[2022-07-14 12:02] LABS: TSH w/ Reflex to FT4 3.67 uIU/mL (0.47-4.68)
[2022-07-16 06:36] LABS: Calcium 10.5 mg/dL (8.6-10.2); Parathyroid Hormone, Intact 120 pg/mL (15-65)
== END ==
PROVIDERS: PCP Internal Medicine; Referring Provider Internal Medicine; Visit Provider Internal Medicine
DX: Z00.00 Encounter for general adult medical examination without abnormal findings (principal); E21.3 Hyperparathyroidism, unspecified; R73.01 Impaired fasting glucose; E78.2 Mixed hyperlipidemia; Z79.01 Long term (current) use of anticoagulants
CPT/HCPCS: 36415; 80053; 80061; 82310; 83036; 83970; 84153; 84443; 85027

== ENCOUNTER → 2023-05-04 12:32 | Outpatient (CLI) | payer MEDICARE, BC, SELFPAY ==
[2021-08-24 23:40] VITALS: BMI 27.8
[2023-05-04 13:07] LABS: Hematocrit 40.4 % (41-53); Hemoglobin 13.6 g/dL (13.5-17.5); Mean Corpuscular HGB Conc 33.6 % (30-36); Mean Corpuscular Hemoglobin 30.9 PG (26-34); Platelet Count 200 X10^3/uL (150-400); Red Cell Distribution Width 14.6 % (11.6-14.8); White Blood Cell Count 9.9 X10^3/uL (4.5-11.0)
[2023-05-04 13:27] LABS: INR 1.4 (0.9-1.3); Prothrombin Time 16.1 SECONDS (10.1-12.7)
[2023-05-04 13:30] LABS: PTT Partial Thromboplastin Tim 37 SECONDS (26-36)
[2023-05-04 13:43] LABS: BUN Creatinine Ratio 19.4 (6-22); Blood Urea Nitrogen 35 mg/dL (9-20); Calcium 10.8 mg/dL (8.4-10.2); Carbon Dioxide 28 mmol/L (22-32); Chloride 103 mmol/L (98-107); Estimated Glomerular Filt Rate 37 mL/min (>60); Glucose 98 mg/dL (80-110); HEMOLYSIS < 15 (0-50); Sodium 138 mmol/L (137-145)
== END ==
PROVIDERS: PCP Internal Medicine; Referring Provider Internal Medicine; Visit Provider Internal Medicine
DX: I48.0 Paroxysmal atrial fibrillation (principal); Z79.01 Long term (current) use of anticoagulants; I67.9 Cerebrovascular disease, unspecified
CPT/HCPCS: 36415; 80048; 85027; 85610; 85730

== ENCOUNTER → 2023-05-11 11:34 | Outpatient (CLI) | payer MEDICARE, BC, SELFPAY ==
[2021-08-24 23:40] VITALS: BMI 27.8
[2023-05-11 13:03] LABS: BUN Creatinine Ratio 15.6 (6-22); Blood Urea Nitrogen 23 mg/dL (9-20); Calcium 10.1 mg/dL (8.4-10.2); Carbon Dioxide 27 mmol/L (22-32); Chloride 104 mmol/L (98-107); Estimated Glomerular Filt Rate 47 mL/min (>60); Glucose 98 mg/dL (80-110); HEMOLYSIS < 15 (0-50); Potassium 4.7 mmol/L (3.4-5.1); Sodium 137 mmol/L (137-145)
[2023-05-13 09:01] LABS: Calcium 10.1 mg/dL (8.6-10.2); Parathyroid Hormone, Intact 122 pg/mL (15-65)
== END ==
PROVIDERS: PCP Internal Medicine; Referring Provider Internal Medicine; Visit Provider Internal Medicine
DX: E83.52 Hypercalcemia (principal); R79.89 Other specified abnormal findings of blood chemistry
CPT/HCPCS: 36415; 80048; 82310; 83970

== ENCOUNTER → 2023-07-14 09:12 | Outpatient (CLI) | payer MEDICARE, BC, SELFPAY ==
[2021-08-24 23:40] VITALS: BMI 27.8
[2023-07-14 11:00] LABS: Hemoglobin A1C% w Est Avg Glu 5.7 % (4.0-6.0)
[2023-07-14 11:11] LABS: Aspartate Aminotransferase 25 IU/L (17-59); BUN Creatinine Ratio 19.7 (6-22); Blood Urea Nitrogen 23 mg/dL (9-20); Calcium 10.6 mg/dL (8.4-10.2); Carbon Dioxide 26 mmol/L (22-32); Chloride 104 mmol/L (98-107); Cholesterol 116 mg/dL (140-199); Estimated Glomerular Filt Rate > 60 mL/min (>60); Glucose 92 mg/dL (80-110); HDL Cholesterol 34 mg/dL (40-60); HEMOLYSIS < 15 (0-50); LDL Cholesterol Calculated 59 mg/dL (<100); Potassium 4.6 mmol/L (3.4-5.1); Sodium 138 mmol/L (137-145); Triglycerides 117 mg/dL (35-150)
[2023-07-16 09:40] LABS: Parathyroid Hormone, Intact 110 pg/mL (15-65)
== END ==
PROVIDERS: PCP Internal Medicine; Referring Provider Internal Medicine; Visit Provider Internal Medicine
DX: R79.89 Other specified abnormal findings of blood chemistry (principal); E83.52 Hypercalcemia; E78.2 Mixed hyperlipidemia; I48.0 Paroxysmal atrial fibrillation; E21.3 Hyperparathyroidism, unspecified; R73.01 Impaired fasting glucose
CPT/HCPCS: 36415; 80048; 80061; 82310; 83036; 83970; 84450

== ENCOUNTER → 2023-11-03 12:20 | Outpatient (CLI) | payer MEDICARE, BC, SELFPAY ==
[2021-08-24 23:40] VITALS: BMI 27.8
[2023-11-03 13:46] LABS: Alanine Aminotransferase 32 IU/L (<50); Albumin 4.2 g/dL (3.5-5.0); Albumin Globulin Ratio 1.2 (1.0-2.8); Alkaline Phosphatase 79 U/L (38-126); Aspartate Aminotransferase 31 IU/L (17-59); BUN Creatinine Ratio 15.4 (6-22); Bilirubin Total 0.9 mg/dL (0.2-1.3); Blood Urea Nitrogen 19 mg/dL (9-20); Calcium 10.4 mg/dL (8.4-10.2); Carbon Dioxide 28 mmol/L (22-32); Chloride 105 mmol/L (98-107); Cholesterol 119 mg/dL (140-199); Estimated Glomerular Filt Rate 58 mL/min (>60); Globulin 3.5 g/dL (1.7-4.1); Glucose 108 mg/dL (80-110); HDL Cholesterol 31 mg/dL (40-60); HEMOLYSIS < 15 (0-50); LDL Cholesterol Calculated 65 mg/dL (<100); Magnesium 2.4 mg/dL (1.6-2.3); Potassium 4.8 mmol/L (3.4-5.1); Sodium 141 mmol/L (137-145); Total Protein 7.7 g/dL (6.3-8.2); Triglycerides 114 mg/dL (35-150)
[2023-11-03 14:15] LABS: Thyroid Stimulating Hormone 1.99 uIU/mL (0.47-4.68)
== END ==
LOC: LAB 12:21
PROVIDERS: PCP Internal Medicine; Referring Provider Internal Medicine Cardiovascular Disease; Visit Provider Internal Medicine Cardiovascular Disease
DX: I48.0 Paroxysmal atrial fibrillation (principal); E78.2 Mixed hyperlipidemia; R00.1 Bradycardia, unspecified
CPT/HCPCS: 36415; 80053; 80061; 83735; 84443

== ENCOUNTER → 2024-07-18 12:04 | Outpatient (CLI) | payer MEDICARE, BC, SELFPAY ==
[2021-08-24 23:40] VITALS: BMI 27.8
[2024-07-18 12:48] LABS: Hematocrit 41.5 % (41-53); Hemoglobin 14.1 g/dL (13.5-17.5); Mean Corpuscular Hemoglobin 31.6 PG (26-34); Platelet Count 206 X10^3/uL (150-400); Red Blood Cell Count 4.46 X10^6/uL (4.5-5.9); Red Cell Distribution Width 15.2 % (11.6-14.8); White Blood Cell Count 9.6 X10^3/uL (4.5-11.0)
[2024-07-18 12:57] LABS: Hemoglobin A1C% w Est Avg Glu 5.7 % (4.0-6.0)
[2024-07-18 13:13] LABS: Alanine Aminotransferase 26 IU/L (<50); Albumin 4.2 g/dL (3.5-5.0); Albumin Globulin Ratio 1.4 (1.0-2.8); Alkaline Phosphatase 81 U/L (38-126); Aspartate Aminotransferase 31 IU/L (17-59); BUN Creatinine Ratio 19.3 (6-22); Bilirubin Total 0.7 mg/dL (0.2-1.3); Blood Urea Nitrogen 23 mg/dL (9-20); Calcium 10.7 mg/dL (8.4-10.2); Carbon Dioxide 24 mmol/L (22-32); Chloride 104 mmol/L (98-107); Cholesterol 120 mg/dL (140-199); Estimated Glomerular Filt Rate 60 mL/min (>60); Glucose 102 mg/dL (80-110); HDL Cholesterol 26 mg/dL (40-60); HEMOLYSIS < 15 (0-50); LDL Cholesterol Calculated 43 mg/dL (<100); Potassium 4.3 mmol/L (3.4-5.1); Sodium 136 mmol/L (137-145); Total Protein 7.2 g/dL (6.3-8.2); Triglycerides 256 mg/dL (35-150)
== END ==
PROVIDERS: PCP Internal Medicine; Referring Provider Internal Medicine; Visit Provider Internal Medicine
DX: E78.2 Mixed hyperlipidemia (principal); R73.01 Impaired fasting glucose; E21.3 Hyperparathyroidism, unspecified; I48.0 Paroxysmal atrial fibrillation; Z79.01 Long term (current) use of anticoagulants; I67.9 Cerebrovascular disease, unspecified; E83.52 Hypercalcemia; M1A.9XX0 Chronic gout, unspecified, without tophus (tophi); G47.33 Obstructive sleep apnea (adult) (pediatric); K59.00 Constipation, unspecified; Z87.440 Personal history of urinary (tract) infections
CPT/HCPCS: 36415; 80053; 80061; 82310; 83036; 83970; 85027

== ENCOUNTER 2024-10-04 10:23 | Day surgery (SDC) | payer MEDICARE, BC, SELFPAY ==
[2021-08-24 23:40] VITALS: BMI 27.8
[2024-09-28 13:12] VITALS: BMI 27.6
--- NOTE | 2024-10-04 | PATH_ITS ---
[facility] Accession Number: [id number] No. of containers..01 Tissue . 01 Material submitted: . back - LEFT UPPER BACK CYST . 01 Diagnosis: LEFT UPPER BACK, EXCISION: Epidermal inclusion cyst. [facility] 10/06/2024 1019 Local . 01 Electronically signed: . Ernst Méndez MD, Dermatopathologist NPI- [id number] . 01 Gross description: . Received in formalin with two patient identifiers and left upper back cyst, and consists o fa 4.2 x 4.0 x 2.5 cm subcutaneous cyst with an overlying 4.6 x 1.1 x 0.2 cm elliptical skin. The cyst is ruptured and has a partially shaggy irregular external surface. The cyst is inked blue. The cyst wall is uniformly thick at 0.1 cm and the inner lining is smooth white glistening. The cyst is filled with a yellow to white grumous material. The overlying elliptical skin is hamlin, wrinkled with a 0.2 cm central umbilication. Radiology Practitioner Assistant sections of the skin and cyst are submitted in cassette A1. ([id number]) /MRV 10/05/20242009 Local . 01 Pathologist provided ICD-10: L72.0 . 01 CPT . 150826 Specimen Comment: A courtesy copy of this report has been sent to [phone] Performed at: [address] [id number] MD Maynor Torrez MD Phone: [phone]
[2024-10-04 10:50] VITALS: BP 165/81; PULSE 57; RESP 16; TEMP 36.1; O2SAT 97; BMI 27.6
[2024-10-04] MEDS: LACTATED RINGERS 1,000 ML 42 ML IV (11:07)
--- NOTE | 2024-10-04 11:32 | PM.PREOP ---
Pre-operative Note COVID-19 COVID-19 status: Not tested Interval Note History & Physical reviewed/Exam performed by Physician: Yes Changes to H&P: No ASA Class (for procedural sedation): II
--- NOTE | 2024-10-04 12:03 | SUR.OPER ---
Lateral on a solomon bag, head on pillow, bottom leg bent with gel pad under knee to foot, upper leg straight and supported with pillows. Upper arm supported by pillows and secured over bottom arm to padded arm board. Safety belt at hip, tape over blanket lower legs.
[2024-10-04] MEDS: BUPIVACAINE 0.5% (PF) 30 ML VIAL INJ (12:14)
[2024-10-04] MEDS: LIDOCAINE 1% W/EPI 20ML 20 ML INJ (12:15)
--- NOTE | 2024-10-04 12:51 | PM.OP.1 ---
Operative Date/Time/Diagnoses Date of procedure: 10/04/24 Time of procedure: 12:51 Pre-op diagnosis: Left upper back cyst Post-op diagnosis: same Procedure & Clinicians Procedure: Excisional biopsy of left upper back cyst Same procedure as scheduled: Yes Surgeon: Mike Keating Anesthesia Type: General Operative Notes Procedure in detail: The patient is an 84-year-old man with a left upper back cyst that was suspected to be a sebaceous cyst. He was consented for excisional biopsy in the operating room. He was brought to the operating room and monitored anesthesia was induced. He was positioned in the right lateral decubitus position with the left side up. The left upper back was prepped and draped in the usual fashion. The cyst was superficial to the left trapezius muscle. We made a 5 cm x 2 cm elliptical incision over the cyst to include the central punctum that was associated with the cyst. We dissected the cyst from the surrounding subcutaneous adipose tissue and off the fascia. The cyst measured about 6 cm x 4 cm x 4 cm. It did rupture at one point during the dissection it was eating some foul-smelling cheesy substance consistent with a sebaceous cyst. We then irrigated the wound cavity. We injected additional Marcaine into the fascia. We closed in layers using multiple interrupted 3-0 Vicryl and a running 4-0 Monocryl subcuticular stitch. Steri-Strips and a dressing were applied. EBL: 5 mL Specimen: Left upper back sebaceous cyst Post-operative Condition: stable Disposition: PACU
[2024-10-04 12:54] VITALS: BP 102/58; PULSE 65; RESP 14; TEMP 36.6; O2SAT 96
[2024-10-04 12:59] VITALS: BP 115/73; PULSE 64; RESP 14; O2SAT 97
[2024-10-04 13:04] VITALS: BP 123/81; PULSE 58; RESP 12; TEMP 36.6; O2SAT 97
[2024-10-04 13:07] VITALS: BP 140/84; PULSE 54; RESP 12; O2SAT 95
== END 2024-10-04 13:28 | disposition home or self-care (01) ==
PROVIDERS: PCP Internal Medicine; Referring Provider Surgery; Visit Provider Surgery
PROC: (CPT 11406; principal; 2024-10-04 11:45)
DX: L72.0 Epidermal cyst (principal); I48.0 Paroxysmal atrial fibrillation; G47.33 Obstructive sleep apnea (adult) (pediatric); I10 Essential (primary) hypertension; I69.398 Other sequelae of cerebral infarction; H53.8 Other visual disturbances; E78.2 Mixed hyperlipidemia; E21.3 Hyperparathyroidism, unspecified; Z79.01 Long term (current) use of anticoagulants
CPT/HCPCS: 11406; 12032; J1100; J2405; J2704; J3010; J3490

== ENCOUNTER → 2024-11-17 12:40 | Outpatient (CLI) | payer MEDICARE, BC, SELFPAY ==
[2021-08-24 23:40] VITALS: BMI 27.8
--- NOTE | 2024-11-17 12:44 | DI.MRI.S_ITS ---
PROCEDURE: MR BRAIN (IAC) WWO CON INDICATIONS: ASYMMETRICAL SENSORINEURAL HEARING LOSS TECHNIQUE: Noncontrast sagittal T1 spin echo, axial FLAIR, axial gradient echo, axial diffusion and ADC through the brain. Axial thin-slice 3D CISS, coronal TruFISP, axial T1 spin echo with fat saturation through the internal auditory canals. After the administration of contrast, thin slice axial and coronal T1 spin echo with fat saturation through the internal auditory canals, and axial and coronal and sagittal T1 spin echo with fat saturation through the brain. COMPARISON: None. FINDINGS: Image quality: Excellent. Cerebellopontine angles: No cerebellopontine angle masses. Inner ear structures appear normally formed. No suspicious enhancement in the internal auditory canal or along the course of the 7th cranial nerve. CSF spaces: Ventricles are normal in size and shape. No extra-axial fluid collections. Basal cisterns are patent. Brain: No intracranial bleeds or mass effects. Martinez-white matter interface is intact. No abnormal intracranial enhancement. Age-related global volume loss and chronic microvascular ischemic changes are present. Diffusion weighted images demonstrate no acute ischemic insults. Brainstem appears normal. Normal intravascular flow voids are present. Skull and face: Calvarial marrow signal is normal. Orbits appear normal. Sinuses: Sinuses and mastoids are clear. IMPRESSION: No cause for patient's symptoms is identified. Normal appearance of the cerebellopontine angles and internal auditory canals. No acute intracranial abnormalities or abnormal intracranial enhancement. Mild age-related global volume loss and chronic microvascular ischemic changes. Dictated by: Cachorro Shepherd M.D. on 11/17/2024 at 14:13 Approved by: Cachorro Shepherd M.D. on 11/17/2024 at 14:19
== END ==
PROVIDERS: PCP Internal Medicine; Referring Provider Otolaryngology; Visit Provider Otolaryngology
DX: H90.3 Sensorineural hearing loss, bilateral (principal)
CPT/HCPCS: 70553; A9579

== ENCOUNTER → 2025-06-30 10:24 | Outpatient (CLI) | payer MEDICARE, BC, SELFPAY ==
[2021-08-24 23:40] VITALS: BMI 27.8
== END ==
PROVIDERS: PCP Internal Medicine; Visit Provider Chiropractor
DX: R30.0 Dysuria (principal)
CPT/HCPCS: 87077; 87086

== ENCOUNTER 2025-06-30 13:03 | Observation (INO) | payer MEDICARE, BC, SELFPAY ==
[2021-08-24 23:40] VITALS: BMI 27.8
[2025-06-30] VITALS (7 sets, daily range): BP systolic 101–137; BP diastolic 56–65; PULSE 79–90; RESP 14–26; TEMP 36.9–38.5; O2SAT 93–100; BMI 27.1; BMI 26.9
--- NOTE | 2025-06-30 13:20 | DI.RAD.S_ITS ---
PROCEDURE: XR CHEST 1V INDICATIONS: UTI/[id number] TECHNIQUE: One view of the chest was acquired. COMPARISON: [facility], CR, XR CHEST 1V, 08/24/2021, 20:53. FINDINGS: Moderate bilateral perihilar and lower lobe peribronchial thickening with patchy lower lobe opacities left greater than right, more than expected for expiratory result and bronchitis, viral infection, bronchopneumonia or other process could be considered. Follow-up suggested. Mild bibasilar subsegmental atelectasis. Cardiopericardial silhouette, pulmonary vasculature within normal limits. No pneumothorax, no pleural effusion.. IMPRESSION: Peribronchial thickening, patchy opacities and subsegmental atelectasis as discussed above. Follow-up suggested. Dictated by: Jordon Wong M.D. on 06/30/2025 at 14:37 Approved by: Jordon Wong M.D. on 06/30/2025 at 14:44
[2025-06-30] MEDS: ACETAMINOPHEN 325 MG TABLET 975 MG PO (13:47)
[2025-06-30] MEDS: SODIUM CHLORIDE 0.9% 1,000 ML 1000 ML IV (13:47)
[2025-06-30 13:53] LABS: Add Manual Diff / Slide Review NO; Hematocrit 40.3 % (41-53); Hemoglobin 13.6 g/dL (13.5-17.5); Lymphocytes Absolute Auto 400 /uL (1100-4500); Mean Corpuscular HGB Conc 33.7 % (30-36); Mean Corpuscular Hemoglobin 31.1 PG (26-34); Mean Corpuscular Volume 92.1 fL (80-100); Platelet Count 186 X10^3/uL (150-400)
--- NOTE | 2025-06-30 13:59 | EKG_ITS ---
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
[2025-06-30 14:08] LABS: Alanine Aminotransferase 30 IU/L (<50); Albumin 4.5 g/dL (3.5-5.0); Albumin Globulin Ratio 1.3 (1.0-2.8); Alkaline Phosphatase 69 U/L (38-126); Blood Urea Nitrogen 22 mg/dL (9-20); Calcium 9.8 mg/dL (8.4-10.2); Carbon Dioxide 20 mmol/L (22-32); Chloride 100 mmol/L (98-107); Estimated Glomerular Filt Rate 54 mL/min (>60); Globulin 3.5 g/dL (1.7-4.1); Glucose 117 mg/dL (70-99); Lipase 189 U/L (23-300); Sodium 132 mmol/L (137-145); Total Protein 8.0 g/dL (6.3-8.2)
[2025-06-30 14:09] LABS: INR 1.4 (0.9-1.3); Lactate (Lactic Acid) 1.9 mmol/L (0.7-2.1); Prothrombin Time 15.9 SECONDS (9.4-12.5)
[2025-06-30 14:12] LABS: HEMOLYSIS 191 (0-50); PTT Partial Thromboplastin Tim 29 SECONDS (25.1-36.5)
[2025-06-30 14:13] LABS: Potassium 5.1 mmol/L (3.4-5.1)
[2025-06-30 14:24] LABS: Procalcitonin 0.086 ng/mL (<0.5)
--- NOTE | 2025-06-30 15:36 | ED.GENADULT ---
HPI - General Adult General Chief complaint: Urogenital-Male Stated complaint: UTI/Fever Time Seen by Provider: 06/30/25 13:41 Source: patient Mode of arrival: Wheelchair History of Present Illness HPI narrative: 85-year-old gentleman with a history of paroxysmal atrial fibrillation on apixaban, prior stroke, hyperlipidemia, hyperparathyroidism, hypertension presents with 1 day of increasing urinary frequency last time he had similar symptoms was 2020 and he was admitted with sepsis secondary to E coli from a UTI. He took 500 mg of Levaquin this morning was seen initially at urgent care and sent to the ER for further evaluation. General malaise and body aches, no nausea vomiting, chest pain, dyspnea, palpitations. Related Data Home Medications ?Medication ?Instructions ?Recorded ?Confirmed Respironics Remstar CPAP #1 ea 02/16/19 06/30/25 polyethylene glycol 3350 17 17 g PO DAILY 02/22/21 06/30/25 gram/dose oral powder (Miralax) cholecalciferol (vitamin D3) 125 125 mcg PO DAILY 01/10/22 06/30/25 mcg (5,000 unit) capsule coenzyme Q10 100 mg tablet 300 mg PO DAILY 01/10/22 06/30/25 cranberry extract 250 mg tablet 1,400 mg PO BID #0 tabs 01/10/22 06/30/25 Previous Rx's ?Medication ?Instructions ?Recorded metoprolol succinate 25 mg 25 mg PO DAILY #90 tabs 10/06/24 tablet,extended release 24 hr allopurinol 300 mg tablet 300 mg PO QDAY #90 tabs 01/02/25 allopurinol 100 mg tablet 100 mg PO DAILY #90 tabs 01/19/25 apixaban 5 mg tablet (Eliquis) 5 mg PO BID #180 tabs 01/19/25 atorvastatin 80 mg tablet (Lipitor) 80 mg PO DAILY #90 tabs 01/19/25 cephalexin 500 mg capsule 500 mg PO BID 7 days #14 caps 06/30/25 Allergies Allergy/AdvReac Type Severity Reaction Status Date / Time shrimp Allergy Severe Anaphylaxis Verified 06/30/25 13:19 Review of Systems Review of Systems Narrative: Pertinent positive and negative findings as per HPI Patient History Medical History Cerebrovascular disease Chronic anticoagulation Do not resuscitate Elevated serum creatinine Gout Gout Hearing loss History of stroke HTN (hypertension) Hypercalcemia Hyperparathyroidism Impaired fasting glucose Mixed hyperlipidemia OK (obstructive sleep apnea) Paroxysmal atrial fibrillation Retinal artery occlusion Wears glasses Surgical History Anesthesia History of cancer surgery History of removal of cyst (~04/03/21) Hx of endarterectomy (04/2012) Family History Father Heart disease Jaw cancer Social History marital status: details: (Darith), grown children household members: spouse lives independently: Yes occupational status: previously employed alcohol intake: current substance use type: does not use alcohol intake frequency: a few times a week Exam Initial Vital Signs Initial Vital Signs: Vital Signs Temperature 101.3 F H 06/30/25 13:14 Pulse Rate 85 06/30/25 13:14 Respiratory Rate 18 06/30/25 13:14 Blood Pressure 137/65 06/30/25 13:14 Pulse Oximetry 95 06/30/25 13:14 Oxygen Delivery Method Room Air 06/30/25 13:14 General: Healthy appearing, in no acute distress. Able to give a complete and coherent history. Well-nourished well-developed HEENT: Moist mucous membranes, normal sclera with reactive pupils, Neck: No JVD, supple Respiratory: Lungs are clear to auscultation, no wheezing no rales no rhonchi. Full and symmetrical air movement Cardiac: Regular rate and rhythm no murmurs no bruits Abdomen: Soft, no specific suprapubic or flank pain. Remainder of abdominal exam is benign Skin: Warm and dry, no rashes Neurologic: Grossly neurologically intact with no obvious asymmetries or abnormalities Extremities: No trauma, well perfused Psych: Cooperative, appropriate insight and affect Course Orders Ordered: ED Orders 06/30/25 13:20 XR chest 1V Stat EKG-12 Lead Stat RT Consult Eval and Treat NOW 06/30/25 13:45 Complete Blood Count AUTO DIFF Stat Comprehensive Metabolic Panel Stat Lactate (Lactic Acid) Stat Lipase Stat PTT Partial Thromboplastin Steve Stat Procalcitonin Stat Prothrombin Time INR Stat 06/30/25 14:15 Blood Culture Stat 06/30/25 15:31 Urine Culture Stat Urine Microscopic Stat Ondansetron HCl (Ondansetron 4 Mg/2 Ml Inj) 4 mg IV NOW PRN PRN Reason: Nausea And Vomiting Ondansetron HCl (Ondansetron 4 Mg Odt) 4 mg PO NOW PRN PRN Reason: Nausea And Vomiting Discontinued Medications Acetaminophen (Acetaminophen 325 Mg Tablet) 975 mg PO NOW ONE Stop: 06/30/25 13:42 Last Admin: 06/30/25 13:47 Dose: 975 mg Documented By: YULY Sodium Chloride (Normal Saline 0.9%) 1,000 mls @ 1,000 mls/hr IV BOLUS ONE Stop: 06/30/25 14:19 Last Infusion: 06/30/25 14:40 Dose: Infused Documented By: Admin: 06/30/25 13:47 Dose: 1,000 mls/hr Documented By: YULY Ceftriaxone Sodium 1,000 mg/ (Sodium Chloride) 100 mls @ 200 mls/hr IV NOW ONE Stop: 06/30/25 14:30 Last Admin: 06/30/25 14:35 Dose: 200 mls/hr Documented By: YULY Vital Signs Vital signs: Vital Signs - 8 hr 06/30/25 13:14 Temperature 101.3 F H Pulse Rate 85 Respiratory Rate 18 Blood Pressure 137/65 Pulse Oximetry 95 Oxygen Delivery Method Room Air Medical Decision Making Lab Data 06/30/25 13:45 06/30/25 13:45 Labs: Lab Results 06/30/25 Range/Units 13:45 WBC 19.0 H (4.5-11.0) X10^3/uL RBC 4.37 L (4.5-5.9) X10^6/uL Hgb 13.6 (13.5-17.5) g/dL Hct 40.3 L (41-53) % MCV 92.1 (80-100) fL MCH 31.1 (26-34) PG MCHC 33.7 (30-36) % RDW 14.9 H (11.6-14.8) % Plt Count 186 (150-400) X10^3/uL Neut % (Auto) 94.0 H (50-75) % Lymph % (Auto) 2.1 L (25-40) % [place] % (Auto) 3.6 (3-14) % Eos % (Auto) 0.1 L (2-4) % Baso % (Auto) 0.2 (0-2) % Neut # (Auto) 11417 H (6219-9636) /uL Lymph # (Auto) 400 L (6287-5369) /uL [place] # (Auto) 700 (0-900) /uL Eos # (Auto) 0 (0-450) /uL Baso # (Auto) 0 (0-100) /uL PT 15.9 H (9.4-12.5) SECONDS INR 1.4 H (0.9-1.3) APTT 29 (25.1-36.5) SECONDS Sodium 132 L (137-145) mmol/L Potassium 5.1 (3.4-5.1) mmol/L Chloride 100 (98-107) mmol/L Carbon Dioxide 20 L (22-32) mmol/L BUN 22 H (9-20) mg/dL Creatinine 1.29 H (0.66-1.25) mg/dL Estimated GFR 54 L (>60) mL/min BUN/Creatinine Ratio 17.1 (6-22) Glucose 117 H (70-99) mg/dL Lactate 1.9 (0.7-2.1) mmol/L Calcium 9.8 (8.4-10.2) mg/dL Total Bilirubin 1.7 H (0.2-1.3) mg/dL AST 43 (17-59) IU/L ALT 30 (<50) IU/L Alkaline Phosphatase 69 (38-126) U/L Total Protein 8.0 (6.3-8.2) g/dL Albumin 4.5 (3.5-5.0) g/dL Globulin 3.5 (1.7-4.1) g/dL Albumin/Globulin Ratio 1.3 (1.0-2.8) Lipase 189 (23-300) U/L Procalcitonin 0.086 (<0.5) ng/mL Urine Dip Bedside Urine Glucose Negative Bedside Urine Bilirubin - Negative Bedside Urine Ketone - Negative Urine Specific [place] 1.015 Bedside Urine Occult Blood ++ Bedside Urine pH 6.0 Bedside Urine Protein + 30 Bedside Urine Urobilinogen 0.2 Bedside Urine Nitrite - Negative Bedside Urine Leukocytes ++ 125 Esterase Point of care testing: Urine Dip Bedside Urine Glucose Negative Bedside Urine Bilirubin - Negative Bedside Urine Ketone - Negative Urine Specific [place] 1.015 Bedside Urine Occult Blood ++ Bedside Urine pH 6.0 Bedside Urine Protein + 30 Bedside Urine Urobilinogen 0.2 Bedside Urine Nitrite - Negative Bedside Urine Leukocytes ++ [address] scan - abdomen/pelvis: Radiologist's Impression: PROCEDURE: CT ABDOMEN PELVIS W CON INDICATIONS: sepsis TECHNIQUE: After the administration of intravenous contrast, axial sections acquired from the lung bases to the pubic symphysis. Coronal and sagittal reformats were performed. For radiation dose reduction, the following was used: automated exposure control, adjustment of mA and/or kV according to patient size. COMPARISON: None. FINDINGS: Image quality: Diagnostic. Lower Chest: Heart is enlarged. ABDOMEN: Liver: No solid mass. Liver is enlarged measuring 20.6 cm with steatosis. Simple hepatic cyst. Gallbladder: No radiopaque gallstones or wall thickening. Biliary ducts: No biliary dilation. Pancreas: No ductal dilation. Spleen: Size is within normal limits. Adrenal Glands: No adrenal nodules. Kidneys and Ureters: No hydronephrosis. Simple bilateral renal cysts. Stomach and Bowel: Several scattered fluid-filled prominent loops of small bowel the largest measuring approximately 3.8 cm in the mid abdomen. Prominent colonic stool is also present. Peritoneum: No abnormal intraperitoneal fluid. No free air. Ventral Wall: No significant ventral hernia. Abdominal Nodes: No retroperitoneal or mesenteric adenopathy by size criteria. Vessels: Aorta and inferior vena cava are normal in size. PELVIS: Pelvic Organs: Unremarkable. Bladder: No bladder wall thickening, accounting for underdistention. Pelvic Nodes: No enlarged lymph nodes. Miscellaneous: Bilateral fat containing inguinal hernia. Bones: No aggressive osseous abnormality. IMPRESSION: Mild prominence of small bowel loops within the mid abdomen. This could represent ileus secondary to significant colonic stool. Hepatomegaly with steatosis. Dictated by: Luly Martinez M.D. on 06/30/2025 at 18:18 MDM Narrative Medical decision making narrative: CC: Urinary frequency, fever Complicating co-morbidities: Anticoagulated for paroxysmal atrial fibrillation, hyperlipidemia, hypertension, coronary artery disease, prior stroke Data collected from: patient Social determinants of health that may influence the patients condition: Medical records reviewed: Recent well visit with PCP review Hospital admission 2020 for similar symptoms reviewed Differential considered: UTI, viral syndrome, sepsis, intra-abdominal infection Exam documented above, pertinent findings include: No significant abdominal pain or flank pain Lab Test results independently reviewed as above. Pertinent findings: [place] [address] PT is slightly elevated at 15.9, INR is 1.4 Chemistries show mild renal insufficiency with creatinine at 1.29 similar to his baseline. Total bilirubin slightly elevated at 1.7 remainder of LFTs are unremarkable. Procalcitonin is not elevated lipase is normal Urine with white cells 30-100, few bacteria Independently reviewed EKG: Sinus rhythm, left axis deviation, no significant ischemic changes Imaging studies independently reviewed: CT scan shows no obvious abnormalities beyond significant constipation Consultations: Discussion with Dr. Aguilar, admitting hospitalist and incidentally this patient's primary care physician Treatments: Oral Levaquin taken at home this morning, 1 g of ceftriaxone IV Discussion: 85-year-old gentleman with dysuria prior episode with complaints ended up with hospitalization for significant sepsis. He is not currently septic but with a white count at 19,000 and a fever to 101.3 at the age of 85 hospitalization for further evaluation is warranted. CT scan does not show alternate explanation for his symptoms. He does need a better bowel regimen and a Beltran catheter is placed to completely decompress his bladder. There was no sign of obstructive hydronephrosis or stones that would require any type of surgical intervention. Who will be admitted to the hospitalist service for continued care Additional Information: Severe Sepsis Criteria [ x ] bacterial source of infection suspected and documented [ ] 2 SIRS Criteria met [ ] HR >90 [ ] RR >20 [ x ] fever or hypothermia [ x ] leukocytosis/leukopenia/bandemia [ ] Evidence of at least 1 organ system dysfunction [ ] Lactate > 2 [ ] BP < 90 or MAP <65, >40mm decrease from normal baseline [ ] Creat > 2.0 [ ] T. Bili > 2.0 [ ] platelet count < 100k [ ] altered mental status [ ] mechanical ventilation [ ] provider documentation of severe sepsis Severe Sepsis Determination. the patient has been screened and [ ] DOES meet criteria for severe sepsis [ x ] DOES NOT meet criteria for severe sepsis Goal directed treatment Within 3 hours [ X? ] blood cx drawn prior to abx - patient took 500mg PO levoquin prior to arrival [ x] broad spectrum abx started [ x ] lactic acid level checked [ ] lactic redrawn within 6 hours if >2.0 Septic Shock Criteria [ ] lactic > 4 at any time [ ] SBP ,90 or MAP , 65 [ ] documentation of septic shock Time Septic Shock diagnosed: [ ] Septic Shock Determination. the patient has been screened and [ ] DOES meet criteria for septic shock [ ] DOES NOT meet criteria for septic shock Goal directed therapy within 3 hours of septic shock or initial hypotension [ ] 30ml/kg fluid [ ] ABW used [ ] IBW (33.6) used due to BMI > 30 [ ] patient or advocate declining fluid administration after shared decision making conversation Clinical reason for NOT initiating fluid bolus: Within 6 hours (if continued hypotension after fluids or initial lactate >4) [ ] repeat volume status and tissue perfusion assessment documented after fluid bolus was completed at [Date/Time] Must include vital signs, cardiopulmonary exam, capillary refill, peripheral pulse evaluation, skin exam [ ] Initiate vasopressor therapy if persistent hypotension after adequate fluid bolus Discharge Plan Departure Patient Disposition: Admitted as Observation Clinical Impression: SIRS (systemic inflammatory response syndrome), Acute on chronic urinary retention Urinary tract infection Qualifiers: Urinary tract infection type: acute cystitis Hematuria presence: without hematuria Qualified Code(s): N30.00 - Acute cystitis without hematuria Constipation Qualifiers: Constipation type: unspecified constipation type Qualified Code(s): K59.00 - Constipation, unspecified Admit Date/Time: 06/30/25 18:28 Admit Provider: Ryder Aguilar V
--- NOTE | 2025-06-30 17:31 | DI.CT.S_ITS ---
PROCEDURE: CT ABDOMEN PELVIS W CON INDICATIONS: sepsis TECHNIQUE: After the administration of intravenous contrast, axial sections acquired from the lung bases to the pubic symphysis. Coronal and sagittal reformats were performed. For radiation dose reduction, the following was used: automated exposure control, adjustment of mA and/or kV according to patient size. COMPARISON: None. FINDINGS: Image quality: Diagnostic. Lower Chest: Heart is enlarged. ABDOMEN: Liver: No solid mass. Liver is enlarged measuring 20.6 cm with steatosis. Simple hepatic cyst. Gallbladder: No radiopaque gallstones or wall thickening. Biliary ducts: No biliary dilation. Pancreas: No ductal dilation. Spleen: Size is within normal limits. Adrenal Glands: No adrenal nodules. Kidneys and Ureters: No hydronephrosis. Simple bilateral renal cysts. Stomach and Bowel: Several scattered fluid-filled prominent loops of small bowel the largest measuring approximately 3.8 cm in the mid abdomen. Prominent colonic stool is also present. Peritoneum: No abnormal intraperitoneal fluid. No free air. Ventral Wall: No significant ventral hernia. Abdominal Nodes: No retroperitoneal or mesenteric adenopathy by size criteria. Vessels: Aorta and inferior vena cava are normal in size. PELVIS: Pelvic Organs: Unremarkable. Bladder: No bladder wall thickening, accounting for underdistention. Pelvic Nodes: No enlarged lymph nodes. Miscellaneous: Bilateral fat containing inguinal hernia. Bones: No aggressive osseous abnormality. IMPRESSION: Mild prominence of small bowel loops within the mid abdomen. This could represent ileus secondary to significant colonic stool. Hepatomegaly with steatosis. Dictated by: Luly Martinez M.D. on 06/30/2025 at 18:18 Approved by: Luly Martinez M.D. on 06/30/2025 at 18:23
--- NOTE | 2025-06-30 17:41 | PC.NURSE ---
pt to CT
--- NOTE | 2025-06-30 18:20 | PC.NURSE ---
hospitalist at bedside
--- NOTE | 2025-06-30 18:34 | PM.HP.IH.1 ---
History of Present Illness History of Present Illness Date Patient Seen: 06/30/25 Time Patient Seen: 18:05 Chief complaint: UTI/Fever Narrative: 85-year-old man under the primary care of Dr. Ryder Aguilar with a history of E coli urosepsis in August,, developed dysuria at 4:00 a.m. this morning upon awakening, and became concerned about recurrent infection. He took two levofloxacin 500 mg pills he had at home and went to the walk-in clinic where he was prescribed cephalexin 500 mg b.i.d. He returned home and felt worse, with fevers and chills and presented to the emergency department, where he was found have a white blood count [address]906. He is admitted for further management and evaluation. [facility] Medical History Cerebrovascular disease Chronic anticoagulation Do not resuscitate Elevated serum creatinine Gout Gout Hearing loss History of stroke HTN (hypertension) Hypercalcemia Hyperparathyroidism Impaired fasting glucose Mixed hyperlipidemia [place] (obstructive sleep apnea) Paroxysmal atrial fibrillation Retinal artery occlusion Wears glasses Surgical History Anesthesia History of cancer surgery History of removal of cyst (~04/03/21) Hx of endarterectomy (04/2012) Family History Father Heart disease Jaw cancer Social History marital status: details: (Darith), grown children household members: spouse lives independently: Yes occupational status: previously employed alcohol intake: current substance use type: does not use Meds Home Medications and Allergies Home Medications ?Medication ?Instructions ?Recorded ?Confirmed ?Type Respironics Remstar CPAP #1 ea 02/16/19 06/30/25 History polyethylene glycol 3350 17 17 g PO DAILY 02/22/21 06/30/25 History gram/dose oral powder (Miralax) cholecalciferol (vitamin D3) 125 125 mcg PO DAILY 01/10/22 06/30/25 History mcg (5,000 unit) capsule coenzyme Q10 100 mg tablet 300 mg PO DAILY 01/10/22 06/30/25 History cranberry extract 250 mg tablet 1,400 mg PO BID #0 tabs 01/10/22 06/30/25 History metoprolol succinate 25 mg 25 mg PO DAILY #90 tabs 10/06/24 06/30/25 Rx tablet,extended release 24 hr allopurinol 300 mg tablet 300 mg PO QDAY #90 tabs 01/02/25 06/30/25 Rx allopurinol 100 mg tablet 100 mg PO DAILY #90 tabs 01/19/25 06/30/25 Rx apixaban 5 mg tablet (Eliquis) 5 mg PO BID #180 tabs 01/19/25 06/30/25 Rx atorvastatin 80 mg tablet (Lipitor) 80 mg PO DAILY #90 tabs 01/19/25 06/30/25 Rx cephalexin 500 mg capsule 500 mg PO BID 7 days #14 caps 06/30/25 06/30/25 Rx Allergies Allergy/AdvReac Type Severity Reaction Status Date / Time shrimp Allergy Severe Anaphylaxis Verified 06/30/25 13:19 Review of Systems Review of Systems ROS: Yes All systems reviewed with the patient and are negative except as otherwise documented Exam Vital Signs (past 8 hours): - 06/30/25 13:14 06/30/25 16:46 06/30/25 17:20 Temperature 101.3 F H 99.9 F H Pulse Rate 85 80 Respiratory Rate 18 20 Blood Pressure 137/65 Pulse Oximetry 95 95 Oxygen Delivery Method Room Air 06/30/25 17:30 06/30/25 18:17 06/30/25 18:17 Temperature Pulse Rate 80 90 Respiratory Rate 20 26 H Blood Pressure 101/57 L Pulse Oximetry 93 94 Oxygen Delivery Method 06/30/25 18:30 06/30/25 18:30 Temperature Pulse Rate 79 Respiratory Rate 22 Blood Pressure 119/56 L Pulse Oximetry 94 Oxygen Delivery Method Oxygen Delivery Method Room Air Narrative Exam Narrative: GENERAL: This is a well-nourished, well-developed patient, in no apparent distress. HEAD: Atraumatic. Normocephalic. No temporal or scalp tenderness. EYES: Pupils equal round and reactive. Extraocular motions intact. No scleral icterus. No injection or drainage. ENT: Mucous membranes pink and moist. NECK: Trachea midline. No JVD, bruits or lymphadenopathy. Supple, nontender, no meningeal signs. CARDIOVASCULAR: Regular rate and rhythm without murmurs, gallops, or rubs. RESPIRATORY: Clear to auscultation. GASTROINTESTINAL: Abdomen soft, non-tender, nondistended. EXTREMITIES: No clubbing, cyanosis, or edema. BACK: Nontender without deformity or crepitance. No flank tenderness. NEUROLOGIC: Alert, oriented, speech fluent, full upper and lower motor strength, no focal deficits evident. DERMATOLOGIC: No rashes or skin lesions. Objective ECG Impression: Normal sinus rhythm at 51 beats per minute, left axis deviation Imaging Chest x-ray: Radiologist's impression: Peribronchial thickening, patchy opacities and subsegmental atelectasis as discussed above. Follow-up suggested. Abdomen/pelvis CT: Radiologist's impression: Mild prominence of small bowel loops within the mid abdomen. This could represent ileus secondary to significant colonic stool. Hepatomegaly with steatosis. Labs 06/30/25 13:45 06/30/25 13:45 Labs: Laboratory Results - last 24 hr 06/30/25 06/30/25 13:45 15:00 WBC 19.0 H RBC 4.37 L Hgb 13.6 Hct 40.3 L MCV 92.1 MCH 31.1 MCHC 33.7 RDW 14.9 H Plt Count 186 Neut % (Auto) 94.0 H Lymph % (Auto) 2.1 L [place] % (Auto) 3.6 Eos % (Auto) 0.1 L Baso % (Auto) 0.2 Neut # (Auto) 54521 H Lymph # (Auto) 400 L [place] # (Auto) 700 Eos # (Auto) 0 Baso # (Auto) 0 PT 15.9 H INR 1.4 H APTT 29 Sodium 132 L Potassium 5.1 Chloride 100 Carbon Dioxide 20 L BUN 22 H Creatinine 1.29 H Estimated GFR 54 L BUN/Creatinine Ratio 17.1 Glucose 117 H Lactate 1.9 Calcium 9.8 Total Bilirubin 1.7 H AST 43 ALT 30 Alkaline Phosphatase 69 Total Protein 8.0 Albumin 4.5 Globulin 3.5 Albumin/Globulin Ratio 1.3 Lipase 189 Procalcitonin 0.086 Urine RBC 1-5/hpf Urine WBC 30-100/hpf H Ur Squamous Epith Cells 1-5 /hpf Urine Bacteria Few (2-10) H Ur Culture Indicated? TNP Vol Urine Centrifuged 10ml (spun) Assessment & Plan Assessment & Plan narrative: 1. Urinary tract infection. 2. Leukocytosis due to 1. 3. History of E coli urosepsis. 4. Paroxysmal atrial fibrillation, currently in sinus rhythm on chronic anticoagulation 5. Hypertension. 6. Hyperlipidemia. 7. Prediabetes. 8. Obstructive sleep apnea. 9. Gout. Plan: -admit to observation -IV ceftriaxone 1 g every 24 hours -follow cultures, possibly negative given pre culture antibiotic exposure -continue routine home medications DVT prophylaxis: Addressed on apixaban Code status: Do not resuscitate. The patient has a POLST form signed enclosed in the chart, reviewed on admission with patient. Quality MIPS - Admit I confirm the patient?s Advance Care Plan is present, Code status is documented, Surrogate decision maker is in patient?s record [If Yes, STOP here]: Yes MIPS - Meds 'Current medications' to include all prescriptions, [id number] products, herbals, cannabis/cannabidiol products, and vitamin/mineral/dietary (nutritional) supplements. I have utilized all available resources to obtain, update, or review the patient?s current medications. 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
[2025-06-30] MEDS: DEXTROSE 5%-0.45% NS 1,000 ML 100 ML IV (18:52)
[2025-06-30] MEDS: APIXABAN 5 MG TABLET PO (20:31)
[2025-07-01] MEDS: DEXTROSE 5%-0.45% NS 1,000 ML 100 ML IV (05:08)
[2025-07-01 07:55] LABS: Add Manual Diff / Slide Review NO; Hematocrit 36.7 % (41-53); Hemoglobin 12.3 g/dL (13.5-17.5); Lymphocytes Absolute Auto 900 /uL (1100-4500); Mean Corpuscular HGB Conc 33.5 % (30-36); Mean Corpuscular Hemoglobin 30.8 PG (26-34); Mean Corpuscular Volume 91.9 fL (80-100); Platelet Count 145 X10^3/uL (150-400)
[2025-07-01 08:06] LABS: Blood Urea Nitrogen 20 mg/dL (9-20); Calcium 9.4 mg/dL (8.4-10.2); Carbon Dioxide 24 mmol/L (22-32); Chloride 104 mmol/L (98-107); Estimated Glomerular Filt Rate 54 mL/min (>60); Glucose 137 mg/dL (70-99); HEMOLYSIS < 15 (0-50); Potassium 3.7 mmol/L (3.4-5.1); Sodium 132 mmol/L (137-145)
[2025-07-01 08:08] VITALS: BP 114/60; PULSE 79; RESP 15; TEMP 37.2; O2SAT 94
[2025-07-01] MEDS: ATORVASTATIN 20 MG TABLET 80 MG PO (09:30)
[2025-07-01 09:31] VITALS: BP 133/62; PULSE 77
[2025-07-01] MEDS: APIXABAN 5 MG TABLET PO (09:31)
[2025-07-01] MEDS: METOPROLOL ER 25 MG TABLET PO (09:31)
--- NOTE | 2025-07-01 10:26 | CM.DANOTE ---
Initial DCP Assessment Note. Review EMR and PT Interview. Met with patient at bedside to discuss discharge needs.PT is alert x 4 sitting up in Bed. No acute distress. Independent. Lives with . Payor:? [facility] PCP: Dr. Aguilar Summary & Plan: 85 y/o arrived to ED c/o abd pain. Admitted OBS, Dx. Urinary Retention. Plan: Monitor I&O's. ABO. Home later today. Discharge Planning/Care Management CM Discharge Assessment Start: 06/30/25 18:43 Freq: Status: Active Protocol: Document 07/01/25 10:25 (Rec: 07/01/25 10:26 [id number]) Discharge Planning Assessment Assigned Discharge Bere De Leon RN CM Brick Tester Provider Dr. Aguilar Insurance Medicare Advance Directives? Yes: DPOA, HC Directive Advance Directives Yes on File History Provided By Patient,Medical Record Has Patient been No admitted in last 30 days? Prior Living House Arrangements Household Members spouse Type of Drives own vehicle transporation used prior to admit Independent with ADL Yes 's Is patient alert and Yes oriented? Caregiver for No Another Discharge Plan Home Transportation can p/u at discharge Arrangement Referrals Initiated None needed Review Status In Process Please Provide Date 07/01/25 Initial DC Assessment Was Performed Next Review Type Continued Stay Review
[2025-07-01] MEDS: TAMSULOSIN 0.4 MG CAPSULE PO (11:34)
[2025-07-01 11:35] VITALS: BP 137/65; PULSE 72
--- NOTE | 2025-07-01 12:12 | PM.DS.IH.1 ---
History of Present Illness History of Present Illness Date Patient Seen: 07/01/25 Time Patient Seen: 08:40 Chief complaint: UTI/Fever Narrative: 85-year-old man under the primary care of Dr. Ryder Aguilar with a history of E coli urosepsis in August,, developed dysuria at 4:00 a.m. this morning upon awakening, and became concerned about recurrent infection. He took two levofloxacin 500 mg pills he had at home and went to the walk-in clinic where he was prescribed cephalexin 500 mg b.i.d. He returned home and felt worse, with fevers and chills and presented to the emergency department, where he was found have a white blood count [id number]. He is admitted for further management and evaluation. Discharge Providers Provider Date of admission: 06/30/25 18:28 Discharge Date: 07/01/25 Primary care physician: Ryder Aguilar MD Consults: 07/01/25 10:32 Consult to Physical Therapy Evaluate & Treat Comment: might need a walker Physician Instructions: Evaluate and Treat Discharge provider: Ryder Aguilar MD Summary Hospital Course Discharge Diagnosis: 1. Urinary tract infection, likely sepsis. 2. Leukocytosis due to 1. 3. Weakness due to 1. 4. History of E coli urosepsis. 5. BPH with urinary retention 6. Paroxysmal atrial fibrillation, currently in sinus rhythm on chronic anticoagulation 7. Hypertension. 8. Hyperlipidemia. 9. Prediabetes. 10. Obstructive sleep apnea. 11. Gout. Hospital Course: The patient was admitted and treated with broad-spectrum IV antibiotics. Cultures were obtained unfortunately after the patient had already had experienced antibiotic exposure and were negative at the time of discharge, and likely to remain negative given prior antibiotic exposure. He was very weak, with significant leukocytosis, and presumed to have early sepsis. He had a postvoid residual of over 300 mL of urine and was started on tamsulosin. This is felt to be a contributor to his infectious presentation due to urinary stasis. He was feeling significantly better and interested in discharge home. No other issues arose. Status at Discharge Cognitive/behavioral status at discharge: oriented Functional status at discharge: uses cane/walker Overall status at discharge: patient is progressing back to baseline Time Spent with Patient Time spent: Greater than 30 minutes Exam Vital Signs (past 8 hours): - 07/01/25 08:08 07/01/25 09:31 07/01/25 11:35 Temperature 98.9 F Pulse Rate 79 77 72 Respiratory Rate 15 Blood Pressure 114/60 133/62 137/65 Pulse Oximetry 94 Oxygen Flow Rate 0 Oxygen Delivery Method Room Air Oxygen Flow Rate 0 Narrative Exam Narrative: GENERAL: This is a well-nourished, well-developed patient, in no apparent distress. EYES: Pupils equal round and reactive. Extraocular motions intact. No scleral icterus. No injection or drainage. ENT: Mucous membranes pink and moist. NECK: Trachea midline. No JVD, bruits or lymphadenopathy. Supple, nontender, no meningeal signs. CARDIOVASCULAR: Regular rate and rhythm without murmurs, gallops, or rubs. RESPIRATORY: Clear to auscultation. GASTROINTESTINAL: Abdomen soft, non-tender, nondistended. EXTREMITIES: No clubbing, cyanosis, or edema. NEUROLOGIC: Alert, oriented, speech fluent, full upper and lower motor strength, no focal deficits evident. DERMATOLOGIC: No rashes or skin lesions. Objective Labs 07/01/25 07:47 07/01/25 07:47 Labs: Laboratory Results - last 24 hr 06/30/25 06/30/25 07/01/25 13:45 15:00 07:47 WBC 19.0 H 18.4 H RBC 4.37 L 3.99 L Hgb 13.6 12.3 L Hct 40.3 L 36.7 L MCV 92.1 91.9 MCH 31.1 30.8 MCHC 33.7 33.5 RDW 14.9 H 14.8 Plt Count 186 145 L Neut % (Auto) 94.0 H 88.3 H Lymph % (Auto) 2.1 L 5.0 L [place] % (Auto) 3.6 5.9 Eos % (Auto) 0.1 L 0.3 L Baso % (Auto) 0.2 0.5 Neut # (Auto) 40945 H 82433 H Lymph # (Auto) 400 L 900 L [place] # (Auto) 700 1100 H Eos # (Auto) 0 0 Baso # (Auto) 0 100 PT 15.9 H INR 1.4 H APTT 29 Sodium 132 L 132 L Potassium 5.1 3.7 D Chloride 100 104 Carbon Dioxide 20 L 24 BUN 22 H 20 Creatinine 1.29 H 1.30 H Estimated GFR 54 L 54 L BUN/Creatinine Ratio 17.1 15.4 Glucose 117 H 137 H Lactate 1.9 Calcium 9.8 9.4 Total Bilirubin 1.7 H AST 43 ALT 30 Alkaline Phosphatase 69 Total Protein 8.0 Albumin 4.5 Globulin 3.5 Albumin/Globulin Ratio 1.3 Lipase 189 Procalcitonin 0.086 Urine RBC 1-5/hpf Urine WBC 30-100/hpf H Ur Squamous Epith Cells 1-5 /hpf Urine Bacteria Few (2-10) H Ur Culture Indicated? TNP Vol Urine Centrifuged 10ml (spun) [facility] Medical History Cerebrovascular disease Chronic anticoagulation Do not resuscitate Elevated serum creatinine Gout Gout Hearing loss History of stroke HTN (hypertension) Hypercalcemia Hyperparathyroidism Impaired fasting glucose Mixed hyperlipidemia OK (obstructive sleep apnea) Paroxysmal atrial fibrillation Retinal artery occlusion Wears glasses Surgical History Anesthesia History of cancer surgery History of removal of cyst (~04/03/21) Hx of endarterectomy (04/2012) Family History Father Heart disease Jaw cancer Social History marital status: details: (Darith), grown children household members: spouse lives independently: Yes occupational status: previously employed Smoking Status: Never smoker alcohol intake: current substance use type: does not use Discharge Plan Discharge Plan Patient Disposition: Home Provider Discharge Comment: Followup with Dr. Aguilar this week Discharge orders & Medications Prescriptions: New tamsulosin 0.4 mg Capsule 0.4 mg PO BEDTIME Qty: 90 0RF levofloxacin 500 mg tablet 500 mg PO DAILY Qty: 7 0RF Continued cranberry extract 250 mg tablet 1,400 mg PO BID Qty: 0 metoprolol succinate 25 mg tablet extended release 24 hr 25 mg PO DAILY Qty: 90 3RF allopurinol 300 mg tablet 300 mg PO QDAY Qty: 90 3RF Rx Instructions: Patient is 300 mg with the 100 mg daily. Total dose is 400 mg daily. Eliquis 5 mg tablet 5 mg PO BID Qty: 180 3RF atorvastatin [Lipitor] 80 mg tablet 80 mg PO DAILY Qty: 90 3RF allopurinol 100 mg tablet 100 mg PO DAILY Qty: 90 3RF cholecalciferol (vitamin D3) 125 mcg (5,000 unit) capsule 125 mcg PO DAILY coenzyme Q10 100 mg tablet 300 mg PO DAILY polyethylene glycol 3350 [Miralax] 17 gram/dose powder 17 g PO DAILY (DME) Respironics Remstar CPAP Qty: 1 Dose Instruction: As directed Patient Comments: Pressure: 6-12 cmH2O DME: [facility] Rx Instructions: As directed Discontinued cephalexin 500 mg capsule 500 mg PO BID 7 Days Qty: 14 0RF Follow up/Referrals: Ryder Aguilar MD [Primary Care Provider, Internal Medicine] Visit Report/Discharge Packet Stand Alone Forms: Patient Portal/API, Stroke Signs & Symptoms Discharge Data Primary Care Provider: Ryder Aguilar V Attending Provider: Ryder Aguilar V Admit Date/Time: 06/30/25 18:28 Quality VTE Deep Vein Thrombosis/Pulmonary Embolism Present on Admission: No MIPS - Admit I confirm the patient?s Advance Care Plan is present, Code status is documented, Surrogate decision maker is in patient?s record [If Yes, STOP here]: Yes MIPS - Meds 'Current medications' to include all prescriptions, [id number] products, herbals, cannabis/cannabidiol products, and vitamin/mineral/dietary (nutritional) supplements. I have utilized all available resources to obtain, update, or review the patient?s current medications. [If Yes, STOP here]: Yes MIPS - DC The patient has a history of heart transplant or Left Ventricular Assist Device (LVAD). If yes, STOP here.: No The patient has current or prior documentation of left ventricular ejection fraction (LVEF) less than or equal to 40%, or moderate or severely depressed left ventricular systolic function.: No A. The patient was prescribed or already taking an Angiotensin-Converting Enzyme (MICHELE) Inhibitor, or Angiotensin Receptor Adan (ARB).: No B. The patient was prescribed or already taking a beta-adan. [If Yes to Both A & B, STOP here]: Yes Patient not prescribed/taking MICHELE or ARB, no reason given.: No Patient not prescribed/taking beta-adan, no reason given.: No [facility] PROFEE Charge Codes Discharge inpatient/observation: [id number]
--- NOTE | 2025-07-01 12:47 | PC.NURSE ---
Addendum entered by Glo Winter RN 07/01/25 13:41: Discharge completed, all questions answered. Pt taken off unit by Rizwan WAGNER and spouse at his side. Original Note: Discharge Note: Patient confirms all belongings in his possession. All lines removed. Discharge paperwork reviewed, all questions answered.
--- NOTE | 2025-07-01 14:34 | PT-IP ANOTE ---
PT eval order received and EMR reviewed. Pt discharged from the hospital before PT eval.
== END 2025-07-01 13:10 | disposition home or self-care (01) ==
LOC: ED 15:05 → AC 18:28
PROVIDERS: Emergency Medicine; Admitting Provider Internal Medicine; Emergency Provider Emergency Medicine; PCP Internal Medicine; Referring Provider Emergency Medicine; Visit Provider Internal Medicine
DX: N30.90 Cystitis, unspecified without hematuria (principal); R35.0 Frequency of micturition; R53.81 Other malaise; R52 Pain, unspecified; I48.0 Paroxysmal atrial fibrillation; E78.5 Hyperlipidemia, unspecified; I10 Essential (primary) hypertension; E21.3 Hyperparathyroidism, unspecified; I25.10 Atherosclerotic heart disease of native coronary artery without angina pectoris; G47.33 Obstructive sleep apnea (adult) (pediatric); R73.03 Prediabetes; M10.9 Gout, unspecified; Z79.01 Long term (current) use of anticoagulants; Z86.73 Personal history of transient ischemic attack (TIA), and cerebral infarction without residual deficits; Z66 Do not resuscitate; R30.0 Dysuria
CPT/HCPCS: 36415; 71045; 74177; 80048; 80053; 81003; 81015; 83605; 83690; 84145; 85025; 85610; 85730; 87040; 87077; 87086; 87186; 93005; 96361; 96365; 99284; G0378; J0696; J7030; J7050; Q9967

== ENCOUNTER → 2025-07-24 12:09 | Outpatient (CLI) | payer MEDICARE, BC, SELFPAY ==
[2025-06-30 18:43] VITALS: BMI 26.9
[2025-07-24 12:27] LABS: Hematocrit 41.7 % (41-53); Hemoglobin 13.9 g/dL (13.5-17.5); Mean Corpuscular HGB Conc 33.2 % (30-36); Mean Corpuscular Hemoglobin 30.9 PG (26-34); Mean Corpuscular Volume 92.9 fL (80-100); Platelet Count 188 X10^3/uL (150-400)
[2025-07-24 12:37] LABS: Hemoglobin A1C% w Est Avg Glu 5.6 % (4.0-6.0)
[2025-07-24 12:47] LABS: Alanine Aminotransferase 22 IU/L (<50); Albumin 4.4 g/dL (3.5-5.0); Albumin Globulin Ratio 1.6 (1.0-2.8); Alkaline Phosphatase 89 U/L (38-126); Blood Urea Nitrogen 22 mg/dL (9-20); Calcium 10.6 mg/dL (8.4-10.2); Carbon Dioxide 27 mmol/L (22-32); Chloride 102 mmol/L (98-107); Cholesterol 115 mg/dL (140-199); Estimated Glomerular Filt Rate 57 mL/min (>60); Globulin 2.8 g/dL (1.7-4.1); Glucose 131 mg/dL (70-99); HDL Cholesterol 35 mg/dL (40-60); HEMOLYSIS < 15 (0-50); Potassium 4.8 mmol/L (3.4-5.1); Sodium 139 mmol/L (137-145); Total Protein 7.2 g/dL (6.3-8.2); Triglycerides 168 mg/dL (35-150); Uric Acid 3.5 mg/dL (3.5-8.5)
[2025-07-24 13:18] LABS: Prostate Specific Antigen 4.50 ng/mL (0.10-4.00)
== END ==
PROVIDERS: PCP Internal Medicine; Referring Provider Internal Medicine; Visit Provider Internal Medicine
DX: R73.01 Impaired fasting glucose (principal); E78.2 Mixed hyperlipidemia; N40.1 Benign prostatic hyperplasia with lower urinary tract symptoms; M1A.9XX0 Chronic gout, unspecified, without tophus (tophi); N13.8 Other obstructive and reflux uropathy; E21.3 Hyperparathyroidism, unspecified
CPT/HCPCS: 36415; 80053; 80061; 82310; 83036; 83970; 84153; 84550; 85027

== ENCOUNTER → 2025-08-03 14:36 | Outpatient (CLI) | payer MEDICARE, BC, SELFPAY ==
[2025-08-03 12:30] VITALS: BMI 26.9
[2025-08-03 14:53] LABS: Appearance Urine UA CLEAR; Bilirubin Urine UA NEGATIVE (NEGATIVE); Color Urine UA YELLOW; Glucose Urine UA NEGATIVE (Negative); Ketones Urine UA NEGATIVE (NEGATIVE); Leukocyte Esterase Urine UA TRACE (NEGATIVE); Nitrite Urine UA NEGATIVE (Negative); Occult Blood Urine UA NEGATIVE (Negative); Protein Urine UA 1+ (Negative); Specific Gravity Urine UA 1.010 (1.000-1.035); Urobilinogen Urine UA 0.2 E.U./dL (0.2); pH Urine UA 6.0 (4.5-8.0)
[2025-08-03 15:00] LABS: Culture Indicated Urine Cult Not Indicated
== END ==
PROVIDERS: PCP Internal Medicine; Visit Provider Internal Medicine
DX: N30.00 Acute cystitis without hematuria (principal)
CPT/HCPCS: 81001

== ENCOUNTER → 2025-08-23 12:06 | Outpatient (CLI) | payer MEDICARE, BC, SELFPAY ==
[2025-08-03 12:30] VITALS: BMI 26.9
[2025-08-23 13:44] LABS: Prostate Specific Antigen 4.10 ng/mL (0.10-4.00)
== END ==
PROVIDERS: PCP Internal Medicine; Referring Provider Internal Medicine; Visit Provider Internal Medicine
DX: R97.20 Elevated prostate specific antigen [PSA] (principal)
CPT/HCPCS: 36415; 84153

== ENCOUNTER → 2025-09-01 18:17 | Outpatient (CLI) | payer MEDICARE, BC, SELFPAY ==
[2025-08-03 12:30] VITALS: BMI 26.9
--- NOTE | 2025-09-01 18:23 | DI.MRI.S_ITS ---
PROCEDURE: MR PELVIC PROSTATE PROTOCOL INDICATIONS: elev psa TECHNIQUE: Coronal HASTE, axial T1 FSE with fat saturation, 3-plane nonbreath-hold T2 FSE. After the administration of contrast, dynamic axial, delayed axial and coronal VIBE or 2-D FLASH with fat saturation through the pelvis. Diffusion weighted imaging and ADC was performed. COMPARISON: None. FINDINGS: Image quality: Diffusion weighted and dynamic contrast enhanced images are diagnostic. Prostate: Gland size is 6 x 6 x 3.8 cm; ellipsoid gland volume is 71 mL. PSA density is 0.058 Transitional zone heterogenous nodules are present, either well encapsulated or mostly encapsulated, compatible with PI-RADS 1 or 2 likely BPH nodules. Mildly T2 hypointense heterogenous striated appearance of the peripheral zone is commonly seen with current or prior prostatitis, PI-RADS 2. At the right peripheral zone apex posterolateral region, there is a 1.1 x 1 x 0.8 cm lesion (5/14, 4/17) DWI score is 3. (25/17). DCE positive. T2 score 3. PI-RADS 4. Seminal vesicles are clear. No extracapsular disease. Genitourinary system: Trabeculated urinary bladder appear this is usually due to chronic obstruction. There is median lobe hypertrophy impinging at the bladder neck Bowel and peritoneum: No bowel obstruction. No drainable ascites. Nodes and vessels: No aneurysmal artery identified no enlarged lymph nodes by size criteria. Soft tissues: No significant pelvic wall abnormality. Small fat containing inguinal hernias. Bones: No aggressive appearing osseous finding IMPRESSION: Background BPH nodules and sequelae of prostatitis throughout the peripheral zone. Small focal lesion is seen at the right apex peripheral zone. This is classified as PI-RADS 4, though differential includes a focal area of prostatitis. Seminal vesicles are clear. No extracapsular disease. No pelvic lymphadenopathy by size criteria. No aggressive osseous abnormality. Dictated by: Bashir Luo M.D. on 09/04/2025 at 9:47 Approved by: Bashir Luo M.D. on 09/04/2025 at 9:53
== END ==
LOC: MRI 18:22
PROVIDERS: PCP Internal Medicine; Referring Provider Internal Medicine; Visit Provider Internal Medicine
DX: N40.1 Benign prostatic hyperplasia with lower urinary tract symptoms (principal); N13.8 Other obstructive and reflux uropathy; R97.20 Elevated prostate specific antigen [PSA]; N42.9 Disorder of prostate, unspecified; N32.89 Other specified disorders of bladder; K40.90 Unilateral inguinal hernia, without obstruction or gangrene, not specified as recurrent
CPT/HCPCS: 72197; A9579